=== PATIENT | female | born 1980 | race Caucasian/White ===

== ENCOUNTER 2018-11-02 20:02 | Inpatient (IN) ==
[2018-11-02] MEDS ORDERED: NS 1,000 ML IV ONE ×2 (20:35→22:44)
[2018-11-02] MEDS ORDERED: ZOFRAN IV ONE ×2 (20:35→22:44)
[2018-11-02] MEDS ORDERED: MORPHINE IV ONE ×2 (20:35→22:44)
[2018-11-02] MEDS ORDERED: TORADOL IV ONE (20:38)
[2018-11-02 21:15] LABS: HEMATOCRIT 43.1 % (37.0-47.0); HEMOGLOBIN 14.7 g/dL (12.0-16.0); IMM GRAN# 0.04 X1000 (0.0-0.04); IMM GRAN% 0.3 % (0.0-0.5); LYMPH# 0.33 X1000 (1.2-3.4); LYMPH% 2.6 % (20.5-51.1); MCHC 34.1 g/dL (33-37); MCV 99.8 FL (81-99); MONO# 1.13 X1000 (0.11-0.59); MONO% 8.8 % (1.7-9.3); MPV 10.2 FL (7.4-10.4); NEUT# 11.41 X1000 (1.4-6.5); NEUT% 88.3 % (42.2-75.2); PLT 124 X1000 (130-400); RBC 4.32 XMIL (4.2-5.4); RDW 16.4 % (11.5-14.5); WBC 12.91 X1000 (4.8-10.8)
[2018-11-02] MEDS ORDERED: REGLAN IV ONE (21:35)
[2018-11-02 22:18] LABS: ALB/GLOB RATIO 1.6; ALBUMIN 4.9 g/dL (3.5-5.0); CALCIUM 8.4 mg/dL (8.8-10.2); CREATININE 1.7 mg/dL (0.5-0.9); POTASSIUM 3.9 mmol/L (3.5-5.1); TOTAL BILIRUBIN 1.45 mg/dL (0.20-1.00)
[2018-11-02 23:27] LABS: URINE SOURCE CLEAN CATCH
[2018-11-02 23:30] LABS: BILIRUBIN URINE MODERATE (NEGATIVE); BLOOD URINE MODERATE (NEGATIVE); COLOR YELLOW; GLUCOSE URINE NEGATIVE (NEGATIVE); KETONE URINE >150 mg/dL (NEGATIVE); LEUKOCYTES URINE NEGATIVE (NEGATIVE); NITRITE URINE NEGATIVE (NEGATIVE); PH URINE 5.5; PROTEIN URINE 100 mg/dL (NEGATIVE); SP GRAVITY URINE 1.018; TURBIDITY URINE HAZY (CLEAR); UROBILINOGEN URINE 6 mg/dL (NORMAL)
[2018-11-02 23:36] LABS: UR EPITHELIAL CELLS <10 /HPF (<10); URINE BACTERIA NEGATIVE /HPF; URINE RBC <10 /HPF (<10); URINE WBC <10 /HPF (<10)
[2018-11-03 00:02] LABS: URINE CASTS GRANULAR PRESENT; URINE CRYSTALS NONE SEEN; URINE SMALL ROUND CELLS NONE SEEN; URINE YEAST NONE SEEN
--- NOTE | 2018-11-03 00:32 | PROVIDER DOCUMENTATION ---
This chart was entered by April Garcia Scribe, acting as scribe for Kenneth Bui MD. HPI-Abdominal Pain/GI Problem - General Chief Complaint: Nausea/Vomiting Stated Complaint: N, V, WEAK Time Seen by Provider: 11/02/18 20:35 Source: patient Allergies/Adverse Reactions: Patient Allergies Allergy/AdvReac Type Severity Reaction Status Date / Time No Known Allergies Allergy Verified 09/02/18 23:36 Home Medications: Home Medication List Medication Instructions Recorded Confirmed Last Taken Type Buspirone [Buspar] 15 mg PO BID 09/02/18 09/02/18 09/02/18 History Trazodone [Desyrel] 150 mg PO BID 09/02/18 09/02/18 09/02/18 History Ondansetron HCl [Zofran] 4 mg PO Q4H PRN PRN #20 tab 09/03/18 Unknown Rx Dicyclomine [Bentyl] 20 mg PO BID #20 cap 10/05/18 Unknown Rx Ondansetron [Zofran] 4 mg PO Q6H PRN PRN #20 tab 10/05/18 Unknown Rx - History of Present Illness-ABD Nature of Presenting Problems: pt is a 38 yr old female presenting with 2 day complaint of nausea and vomiting and abdominal pain. pt vomited x 3 in triage. pt denies diarrhea but does reports similar symptoms a few months ago, pt reports i get stomach viruses often. Abdominal Pain Onset Location: reports: epigastric Pain Radiation: reports: no radiation Quality of Pain: reports: cramping Severity in ED: reports: moderate Onset/Duration: reports: 2 days ago Timing: reports: still present Activities at Onset: reports: light activity Exposure to sick contacts?: No Modifying Factors: improves with: vomiting (induces abdominal pain) Associated Symptoms: reports: nausea, vomiting. denies: diarrhea, fever/chills Last BM: unsure Dark Stools Present?: reports: none noticed Rectal Bleeding: reports: none Rectal Pain: reports: none Bruising or Bleeding Gums?: No Similar Symptoms Previously?: Yes Recently seen or treated by another doctor?: No Review of Systems - Adult - REVIEW OF SYSTEMS - ADULT Constitutional: denies: chills, fever Eyes: reports: no symptoms reported Ears, Nose, Mouth & Throat: denies: ear pain, sinus problem, throat pain Cardiovascular: denies: chest pain, palpitations, syncope Respiratory: denies: cough, shortness of breath Gastrointestinal: reports: abdominal pain, nausea, vomiting. denies: diarrhea Genitourinary: denies: dysuria, frequency, urinary retention Musculoskeletal: denies: back pain, neck pain Integumentary: reports: no symptoms reported Neurological: denies: dizziness/vertigo, headache/migraines Psychiatric: reports: no symptoms reported Endocrine: reports: no symptoms reported Hematologic/Lymphatic: reports: no symptoms reported Allergic/Immunologic: reports: no symptoms reported All Other Systems: Reviewed and Negative Past History - Adult - PAST MEDICAL HISTORY-ADULT Review of Records: reports: Old Records Reviewed, Nursing Assessment Review, Medications Reviewed, Social history reviewed & non-contributory. Major Childhood Illnesses: reports: denies history Cardiovascular: reports: denies history Respiratory: reports: denies history Gastrointestinal: reports: denies history Obstetrical/Gynecological: reports: denies history Genitourinary: reports: denies history Musculoskeletal: reports: denies history Neurological: reports: denies history Psychiatric: reports: depression Endocrine/Immune: reports: denies history Other Conditions: reports: denies history - PRIOR SURGERIES/PROCEDURES Surgical/Procedure History: reports: reviewed, not pertinent - IMMUNIZATION STATUS Childhood Immunizations: See Nurse Assessment Flu Vaccine: See Nurse Assessment - FAMILY HISTORY Family History: reviewed, not pertinent - SOCIAL HISTORY Smoking: cigarettes Provider spent 3-5 mins advising pt. on dangers of tobacco.: Discussed manners to quit use, and f/u contacts for add'l counseling. Substance Use: alcohol Living Situation: family Physical Exam-General - PHYSICAL EXAM-ADULT Initial Vital Signs Reviewed: Yes - CONSTITUTIONAL General Appearance: appears well, alert, no apparent distress - EYES Eyes: PERRL/EOMI - HEAD, EARS, NOSE, MOUTH & THROAT HENMT: normocephalic/atraumatic, moist mucous membranes, normal ENT inspection - NECK Neck: non-tender, full range of motion, supple, normal inspection - RESPIRATORY Respiratory: chest non-tender, lungs clear, normal breath sounds - CARDIOVASCULAR Cardiovascular: normal peripheral pulses, regular rate, rhythm, no edema - GASTROINTESTINAL (ABDOMEN) Abdominal Exam: normal bowel sounds, non tender, soft - LYMPHATIC Lymphatic: no adenopathy - MUSCULOSKELETAL Back Exam: normal inspection, no CVA tenderness, no vertebral tenderness Extremity: normal range of motion, non-tender, normal gait, normal inspection - SKIN Integumentary: normal color, normal turgor, warm/dry - NEUROLOGIC Neurologic: grossly normal, no motor/sensory deficits - PSYCHIATRIC Psych/Mental Status: normal mood/affect Progress - PLAN OF CARE/RESULTS Progress/Plan/Lab Results: Vital Signs - 8 hr 11/02/18 20:15 Temperature 97.9 F Pulse Rate 129 H Respiratory Rate 25 H Blood Pressure 102/74 O2 Sat by Pulse Oximetry 97 Orders Category Date Time Status Saline Loc DIRECTED Care 11/02/18 20:27 Active NPO Diet 11/02/18 20:27 Active AMYLASE [CHEM] Stat Lab 11/02/18 20:55 Received CBC WITH ELECTRONIC DIFF [HEME] Stat Lab 11/02/18 20:55 Results COMPREHENSIVE METABOLIC PANEL [CHEM] Stat Lab 11/02/18 20:55 Received LIPASE [CHEM] Stat Lab 11/02/18 21:02 Ordered TEST-URINE [PREG] Stat Lab 11/02/18 20:27 Uncollected URINALYSIS W/POSS RFLX CULT [URINALYSIS] Stat Lab 11/02/18 20:27 Uncollected 0.9% Sodium Chloride Inj [Ns] 1,000 ml Med 11/02/18 20:35 Active IV 999 mls/hr Ketorolac [Toradol] Med 11/02/18 20:38 Discontinued 30 mg IV NOW ONE Morphine Med 11/02/18 20:35 Discontinued 4 mg IV NOW ONE Ondansetron [Zofran] Med 11/02/18 20:35 Discontinued 8 mg IV NOW ONE Result Diagrams: 11/02/18 20:55 11/02/18 21:38 Departure - Departure Date of Disposition Decision: 11/03/18 Time of Disposition Decision: 00:32 DIAGNOSIS: Pancreatitis Qualifiers: Chronicity: acute Pancreatitis type: unspecified pancreatitis type Acute pancreatitis complication: no infection or necrosis Qualified Code(s): K85.90 - Acute pancreatitis without necrosis or infection, unspecified Disposition: ADMITTED INPATIENT 09 Certified Medical Emergency: Emergent Condition: Stable Referrals and Follow-Ups: None,PCP [Primary Care Provider] - - Critical Care Note This patient required my direct & personal management of CC.: No Attestation - Physician/ HEATH Attestation Patient care was provided by Advanced Practice Provider:: No The physician spent face to face time with patient:: Yes Advanced Practice Provider documentation review:: Supervising physician onsite and consulted in the evaluation and care of this patient. The physician did have a face to face encounter with the patient. This chart was documented by the indicated scribe, (April Garcia Scribe) and accurately reflects the services I performed and decisions made by me, Kenneth Bui MD, as attested by the provider's signature.
[2018-11-03] MEDS ORDERED: ZOFRAN IV ONE (01:45)
[2018-11-03] MEDS ORDERED: MORPHINE IV ONE (01:45)
--- NOTE | 2018-11-03 02:36 | HISTORY AND PHYSICAL ---
PRIMARY CARE PHYSICIAN: None. CHIEF COMPLAINT: Nausea, vomiting, abdominal pain x3 days. HISTORY OF PRESENTING ILLNESS: A 38-year-old female without any significant past medical history, who presented to emergency department with 3-days history of having intractable nausea, vomiting, and abdominal pain. The patient states that she could not keep anything down, she felt weak, and subsequently she had come to the emergency department. In the ED, she was evaluated. She was given antiemetics and she had laboratories drawn that did show that she had elevated lipase. She also had imaging done, which was consistent with pancreatitis. Subsequently, she will require admission for further management. At the time of my examination, patient denied any headache, fever, chills, chest pain, shortness of breath, hemoptysis, melena, weight changes, but complained of nausea, vomiting, and abdominal pain. PAST MEDICAL HISTORY: None. PAST SURGICAL HISTORY: Left knee surgery. ALLERGIES: No known drug allergies. CURRENT MEDICATIONS: MAR includes BuSpar 50 mg p.o. b.i.d., trazodone 150 mg p.o. b.i.d. SOCIAL HISTORY: No history of smoking. History of alcohol use in the past, however, she states that she has not had any alcohol over the past year. Denies any illicit drug use. FAMILY HISTORY: No history of coronary disease. REVIEW OF SYSTEM: Fourteen-point review of systems is as in HPI, other systems negative. PHYSICAL EXAMINATION: GENERAL: Cooperative, friendly female, she is resting more comfortably now. VITAL SIGNS: Temperature 97.9 degrees, pulse 129, respiration 25, blood pressure 102/74. HEENT: Atraumatic, normocephalic. Extraocular movements intact. PERRLA. NECK: No masses. CHEST: Clear to auscultation. CARDIOVASCULAR: Regular rate and rhythm. ABDOMEN: Soft, diffuse tenderness. EXTREMITIES: No edema. NEUROLOGIC: She is awake, alert, oriented x3. GENITOURINARY: No bladder distention. SKIN: Warm. LABORATORIES AND STUDIES: WBC 12.91, hemoglobin 14.7, hematocrit 43.1, platelets 124,000. Lipase 1259. Sodium 129, potassium 3.9, chloride 77, CO2 is 12, BUN is 14, creatinine is 1.7. Glucose is 122. ASSESSMENT: A 38-year-old female without any significant past medical history, presents to emergency department with 3-days history of worsening nausea, vomiting, abdominal pain. She was evaluated in the emergency department. She had imaging and laboratories that confirmed pancreatitis, subsequently she will require admission for further management. Acute pancreatitis. PLAN: 1. We will admit patient to medical floor with telemetry. 2. Continue with supportive treatment with IV fluids, antiemetics, pain control. 3. We will check an abdominal ultrasound. 4. Put patient on DVT prophylaxis with SCDs. 5. We will continue to follow and reassess, make further recommendation based on patient's clinical course. cc: Ramu Fox MD
[2018-11-03] MEDS ORDERED: NS 1,000 ML IV SCH (02:42)
[2018-11-03] MEDS ORDERED: ZOFRAN IV PRN (02:42)
[2018-11-03] MEDS: PHENERGAN IV PRN (04:45)
[2018-11-03] MEDS: SODIUM CHLORIDE 0.9% INJ PRN (04:45)
[2018-11-03] MEDS: MORPHINE IV PRN (06:15)
--- NOTE | 2018-11-03 07:44 | Diag Imaging Result Doc PS360 ---
EXAM: CT ABD/PELVIS W/IV CONT ONLY HISTORY: colitis TECHNIQUE: CT abdomen and pelvis with intravenous contrast COMPARISON: 09/03/2018 FINDINGS: There is pronounced fatty infiltration of the liver. Mild thickening to the wall of the distal esophagus. No calcified gallstones or adjacent inflammation. Normal spleen. Questionable minimal inflammation about the tail of the pancreas. No pancreatic mass or pseudocyst. No pancreatic calcifications. Normal adrenal glands. Normal kidneys. No hydronephrosis. Normal aorta. No bowel obstruction. No inflammation about the cecum. No abscess. No ascites. The urinary bladder is moderately distended and is normal. There is a 1.9 cm left ovarian cyst. Normal uterus. Scattered pelvic phleboliths. IMPRESSION: 1.Marked fatty infiltration of the liver 2.Questionable mild pancreatitis 3.Small left ovarian cyst 4.A preliminary report was given at 12:16 AM This exam was performed using automated exposure control, adjustment of mA or kV according to patient size, and/or use of iterative reconstruction technique. Electronically signed by Héctor Thakur 11/03/2018 7:42 AM
[2018-11-03] MEDS ORDERED: D5 NS 1,000 ML IV SCH (11:30)
--- NOTE | 2018-11-03 11:39 | Diag Imaging Result Doc PS360 ---
EXAM: US ABDOMEN-COMPLETE HISTORY: abdominal pain TECHNIQUE: Abdominal ultrasound COMPARISON: 11/13/2017 FINDINGS: Normal pancreatic head and body. The tail is obscured. No abdominal aortic aneurysm. There is mild fatty infiltration of the liver. Normal right kidney. No hydronephrosis. Normal gallbladder. No stones. The common bile that measures 3 mm. Inferior vena cava is poorly seen. Normal left kidney. No hydronephrosis. Normal spleen. No ascites. IMPRESSION: Fatty infiltration of the liver, but otherwise normal exam. Electronically signed by Héctor Thakur 11/03/2018 11:37 AM
--- NOTE | 2018-11-03 12:43 | PROGRESS NOTE ---
DATE: 11/03/2018 SUBJECTIVE: This morning, Ms. Alfonso referred to be feeling a lot better. Still has some epigastric abdominal discomfort. OBJECTIVE: Vital signs: Blood pressure is 126/86, pulse 98, respirations 16, temperature is 98.0. General: Ms. Alfonso is a 38-year-old female. She is in bed. No significant distress. Mucosa is pink and moist. Anicteric and acyanotic. Neck is supple. Chest was clear to auscultation. No crepitations. No rhonchi. Cardiovascular: Regular rate and rhythm. No murmurs, no rubs, no gallops. Abdomen: There is some tenderness in the mid abdomen to the epigastrium with some mild rebound tenderness. Bowel sounds are present. Extremities: No pedal edema. Distal pulses present. SPLIT AND DRUM ROOM SUPERVISOR: The patient is awake, alert and oriented. There is no focal neurologic deficit. DIAGNOSTIC DATA: No laboratory data from today. The ones from yesterday have all been reviewed. A CT scan of the abdomen was done which shows a marked fatty infiltration of the liver. Questionable mild pancreatitis. ASSESSMENT: 1. Acute pancreatitis, etiology is presumably alcohol induced. The patient is currently n.p.o. and on IV fluids. Nausea has significantly improved, so we are going to try her on clears and see if she is able to tolerate. We are going to continue with the IV fluids and pain management. 2. History of alcohol abuse with alcohol induced hepatitis. Noted. 3. Fatty liver disease, presumably due to alcohol abuse. The patient has been counseled extensively. 4. Severe high anion gap metabolic acidosis, likely due to alcohol ketoacidosis. We are going to continue with the IV fluids. I will add some D5 to the baseline fluids. 5. Acute kidney injury, likely due to volume depletion. We are going to continue with IV fluids. 6. Metabolic alkalosis, likely due to dehydration. Noted. 7. Alcohol abuse. The patient has been counseled, and we started her on Librium with gabapentin to prevent withdrawal. PLAN: In general, Ms. Alfonso is a 38 year old who has a severe alcohol ingestion problem, presented to the emergency department because of nausea and abdominal discomfort, has been found to be in acute pancreatitis, etiology is presumably alcohol induced. We are going to continue with the IV fluids and symptomatic management. We will start her on clears and advance her diet as she tolerates it today. cc: Sai Camp MD
[2018-11-03 12:44] LABS: ACETAMINOPHEN < 1.2 ug/mL (10-30); SALICYLATES < 3.00 mg/dL (3-10)
[2018-11-03 12:51] LABS: ACETONE SERUM MODERATE (NEGATIVE)
[2018-11-03] MEDS ORDERED: LIBRIUM PO SCH (13:00)
[2018-11-03] MEDS: M.V.I.-12 10 ML, FOLIC ACID 1 MG, MAGNESIUM SULFATE 1 GM, THIAMINE 100 MG in NS 1,000 ML IV SCH (13:55)
[2018-11-03] MEDS: NEURONTIN PO SCH ×2 (13:56→19:59)
[2018-11-03] MEDS: LIBRIUM PO SCH (19:59)
[2018-11-03] MEDS: D5 NS 1,000 ML IV SCH (21:00)
[2018-11-04] MEDS: D5 NS 1,000 ML IV SCH ×3 (04:09→21:07)
[2018-11-04 07:16] LABS: INR 0.95; PROTIME 13.5 Seconds (11.0-16.0)
[2018-11-04] MEDS: MORPHINE IV PRN ×4 (07:32→21:49)
[2018-11-04 07:36] LABS: AGAP 12; ALB/GLOB RATIO 1.4; ALBUMIN 3.5 g/dL (3.5-5.0); ALKALINE PHOSPHATASE 93 U/L (32-104); BUN 3 mg/dL (8-22); CALCIUM 8.4 mg/dL (8.8-10.2); CHLORIDE 100 mmol/L (98-107); COSMO 269; CREATININE 0.5 mg/dL (0.5-0.9); ESTIMATED GFR > 60; GLUCOSE 107 mg/dL (70-104); GOT 56 U/L (10-30); GPT 39 U/L (10-36); MAGNESIUM 1.6 mg/dL (1.5-2.7); POTASSIUM 2.7 mmol/L (3.5-5.1); SODIUM 136 mmol/L (136-145); TCO2 24 mmol/L (25-35); TOTAL BILIRUBIN 1.25 mg/dL (0.20-1.00)
[2018-11-04 07:55] LABS: PHOSPHORUS 0.4 mg/dL (2.7-4.5)
[2018-11-04] MEDS: LIBRIUM PO SCH ×3 (08:50→21:07)
[2018-11-04] MEDS: NEURONTIN PO SCH ×2 (08:50→21:07)
[2018-11-04] MEDS ORDERED: MAGNESIUM SULFATE 2 GM/S.W.I. 2 GM/50 ML IVPB IV ONE (08:51)
[2018-11-04] MEDS ORDERED: POTASSIUM PHOSPHATE 60 MEQ in NS 250 ML IV ONE (10:00)
[2018-11-04 10:14] LABS: C REACTIVE PROT QUANT 63.92 mg/L (0.00-5.00)
[2018-11-04] MEDS: M.V.I.-12 10 ML, FOLIC ACID 1 MG, MAGNESIUM SULFATE 1 GM, THIAMINE 100 MG in NS 1,000 ML IV SCH (10:43)
--- NOTE | 2018-11-04 13:49 | PROGRESS NOTE ---
DATE: 11/04/2018 SUBJECTIVE: This morning Ms. Alfonso refers to be doing fairly okay denies any complaints. She was sitting up in the bed, eating her breakfast. OBJECTIVE: Vital signs: Blood pressure is 110/90, pulse of 88, respiration is 18, temperature 99.7 degrees. Patient was saturating 100% on room air. General: Ms. Alfonso is a 8-year-old female. She is in bed. She is not in any cardiopulmonary distress. HEENT: Mucosa is pink and moist. Anicteric. Acyanotic. Neck: Supple. Chest: Clear to auscultation. No crepitations. No rhonchi. Cardiovascular: Regular rate and rhythm. No murmurs, rubs or gallops. GI: Abdomen soft, minimally tender in the mid abdomen but no rebound or guarding. Bowel sounds present. No hepatosplenomegaly. Extremities: No pedal edema and distal pulses are present. PATENT ENGINEER: Patient is awake, alert, and oriented. There is not any tremors. LABORATORY DATA: INR is 0.95. Patient chemistry is reviewed. Potassium is 2.7, phosphorus is 0.4, and magnesium is 1.6. AST and ALT are all downward trend patient. C-reactive protein is 63.92 and lipase is down to 504. ASSESSMENT: 1. Acute pancreatitis secondary to alcohol abuse, improving. 2. History of alcohol abuse with alcohol induced hepatitis. Liver enzymes are downward trend. 3. Fatty liver disease secondary to alcohol abuse. 4. Severe high anion gap metabolic acidosis secondary to alcohol ketosis. This is resolved. 5. Acute kidney injury secondary to volume depletion. Creatinine has normalized with adequate fluid resuscitation. 6. Alcohol abuse. Patient has been counseled. She is currently on Librium and gabapentin. 7. Severe electrolytes abnormality including hypophosphatemia, hypokalemia and hypomagnesemia. This is presumably all related to alcohol abnormality. Will continue replacement. PLAN: In general Ms. Alfonso seems to be doing a lot better. She is tolerating her diet. We are going to advanced to GI soft diet today. Replace all her electrolytes abnormality and hopefully tomorrow we can discharge her. Ultrasound of the abdomen was unremarkable for any gallstones. cc: Sai Camp MD
[2018-11-04] MEDS: PHENERGAN IV PRN (17:40)
[2018-11-05] MEDS: PHENERGAN IV PRN ×3 (00:03→12:50)
[2018-11-05] MEDS: SODIUM CHLORIDE 0.9% INJ PRN ×2 (00:04→06:57)
[2018-11-05] MEDS: MORPHINE IV PRN ×3 (02:12→11:39)
[2018-11-05] MEDS: D5 NS 1,000 ML IV SCH ×2 (05:17→11:39)
[2018-11-05 07:41] LABS: AGAP 8; ALB/GLOB RATIO 1.6; ALBUMIN 3.4 g/dL (3.5-5.0); ALKALINE PHOSPHATASE 81 U/L (32-104); BUN 1 mg/dL (8-22); C REACTIVE PROT QUANT 28.52 mg/L (0.00-5.00); CALCIUM 8.1 mg/dL (8.8-10.2); CHLORIDE 101 mmol/L (98-107); COSMO 265; CREATININE 0.4 mg/dL (0.5-0.9); ESTIMATED GFR > 60; GLUCOSE 89 mg/dL (70-104); GOT 39 U/L (10-30); GPT 34 U/L (10-36); LIPASE 278 U/L (13-60); MAGNESIUM 1.7 mg/dL (1.5-2.7); PHOSPHORUS 2.6 mg/dL (2.7-4.5); POTASSIUM 2.8 mmol/L (3.5-5.1); SODIUM 135 mmol/L (136-145); TCO2 26 mmol/L (25-35); TOTAL BILIRUBIN 0.58 mg/dL (0.20-1.00); TOTAL PROTEIN 5.5 g/dL (6.3-8.3)
[2018-11-05 08:21] LABS: BASO# 0.05 X1000 (0.0-0.2); BASO% 1.5 % (0.0-0.8); EOS# 0.06 X1000 (0.0-0.7); EOS% 1.8 % (0.0-10.0); HEMOGLOBIN 10.3 g/dL (12.0-16.0); LYMPH# 1.65 X1000 (1.2-3.4); LYMPH% 50.3 % (20.5-51.1); MCH 34.6 PG (27-31); MCHC 34.3 g/dL (33-37); MCV 100.7 FL (81-99); MONO# 0.23 X1000 (0.11-0.59); NEUT# 1.29 X1000 (1.4-6.5); NEUT% 39.4 % (42.2-75.2); PLT 75 X1000 (130-400); RBC 2.98 XMIL (4.2-5.4); RDW 15.4 % (11.5-14.5); WBC 3.28 X1000 (4.8-10.8)
[2018-11-05] MEDS: NEURONTIN PO SCH (08:26)
[2018-11-05] MEDS: LIBRIUM PO SCH (08:27)
[2018-11-05] MEDS: M.V.I.-12 10 ML, FOLIC ACID 1 MG, MAGNESIUM SULFATE 1 GM, THIAMINE 100 MG in NS 1,000 ML IV SCH (11:38)
[2018-11-05 11:53] VITALS: BP 127/97
--- NOTE | 2018-11-05 13:54 | DISCHARGE SUMMARY ---
ADMISSION DATE: 11/03/2018 DISCHARGE DATE: 11/05/2018 DISPOSITION: Home. FOLLOW-UP: Will be patient's PCP, which she has yet to find. CONSULTATION DURING THIS ADMISSION: None. IMAGING STUDIES: 1. A CT scan of the abdomen and pelvis reveal mild fatty infiltration of the liver. 2. Mild pancreatitis. 3. Small left ovarian cyst. 4. An ultrasound of the abdomen show fatty infiltration of the liver, but otherwise normal. No stones found. ADMISSION DIAGNOSIS: Acute pancreatitis. DIAGNOSIS AT THE TIME OF DISCHARGE: 1. Acute alcohol-induced pancreatitis. 2. History of alcohol abuse with presenting alcohol induced hepatitis, resolved. 3. Fatty liver disease secondary to alcohol abuse. 4. Severe high anion gap metabolic acidosis on presentation secondary to alcoholic ketosis, resolved. 5. Acute kidney injury on presentation, secondary to volume depletion, resolved. 6. Severe electrolyte abnormality including hypophosphatemia, hypokalemia, hypomagnesemia were all replaced. 7. Pancytopenia secondary to alcohol side effects. PRESENTING COMPLAINT: Nausea and vomiting. HISTORY OF PRESENT COMPLAINT: Mr. Alfonso is a 38-year-old female who has had multiple admissions in the past because of alcohol related disorders. She came to the emergency department because of nausea and vomiting, was found to be in acute pancreatitis and was admitted for further medical care. HOSPITAL COURSE: Ms. Alfonso was admitted to the medical floor and was adequately fluid resuscitated. Pain was under control and she did improve with initial management. She was initially started NPO, but then transition to clears and was advanced to a GI soft diet. She has been tolerating her diet. She is in no more pain. She has not vomited. She feels a lot stronger. She is going to be discharged in stable condition. We have spoken extensively about alcohol cessation and we have also spoken about the need for follow-up if she needs to go to [facility] in [place]. All the discharge instructions have been discussed with her and she voiced understanding. TIME SPENT FOR DISCHARGE: 37 minutes. PHYSICAL EXAMINATION: The patient vitals and physical exam this morning has been reviewed. All unremarkable and lab works have also been reviewed. cc: Sai Camp MD
== END 2018-11-05 14:39 | disposition home or self-care (01) | DRG 439 ==
LOC: ED 20:02 → 3N 11-03 02:59 → SUATTDRO 11-03 02:59
PROVIDERS: ATTEND Internal Medicine
CPT/HCPCS: 74177; 76700; 80053; 80196; 80307; 80324; 80329; 81001; 81025; 82003; 82009; 82150; 83605; 83690; 83735; 84100; 85025; 85610; 86140; 96374; 96375; 96376; 99285; A9270; G0480; G6038; G6039; J1885; J2270; J2405; J2550; J2765; J3411; J3475; J7030; J7042; J7050; Q9967

== ENCOUNTER 2018-12-29 10:24 | Inpatient (IN) ==
--- NOTE | 2018-12-29 10:50 | PROVIDER DOCUMENTATION ---
HPI-General Adult - General Chief Complaint: SEPSIS ALERT - D Stated Complaint: VOMITING Time Seen by Provider: 12/29/18 10:48 Source: patient Allergies/Adverse Reactions: Patient Allergies Allergy/AdvReac Type Severity Reaction Status Date / Time No Known Allergies Allergy Verified 09/02/18 23:36 Home Medications: Home Medication List Medication Instructions Recorded Confirmed Last Taken Type Buspirone [Buspar] 15 mg PO BID 09/02/18 11/03/18 11/02/18 History Gabapentin [Neurontin] 100 mg PO BID #60 cap 11/05/18 Unknown Rx Phosphorus #1 [K-Phos Neutral 250 mg PO BID #60 tab 11/05/18 Unknown Rx Tablet] Trazodone HCl 150 mg PO QHS #30 tab 11/05/18 Unknown Rx Trazodone [Desyrel] 100 mg PO BID #60 tab 11/05/18 Unknown Rx - History of Present Illness -Gen Adult Nature of Presenting Problems: Pt. is 38 yof that presents with c/o abd pain with N/V. Pt. reports Hx of pancreatitis and states she can't stop vomiting. She denies any other symptoms. Location of Pain/Injury: reports: abdomen. denies: none, head, face, mouth, neck, chest, upper extremity, hand(s), back, pelvis, genitalia, lower extremity, feet, upper body, lower body, generalized, other Pain Radiation: reports: no radiation. denies: arm(s), back, buttocks, chest, epigastric, feet, groin, jaw, flank (L), legs (lower), LLQ, LUQ, neck, periumbilical, flank (R), RLQ, RUQ, shoulder(s), scapula, scrotal, sternal notch, suprapubic, legs (upper), urethral, vaginal, other Quality of Pain: reports: aching. denies: burning, sharp, throbbing, tightness Severity: reports: moderate. denies: mild, severe Onset/Duration: reports: gradual, 2 days ago Timing: reports: still present. denies: improving, constant, getting worse Context/Activities at Onset: reports: none. denies: light activity, moderate activity, vigorous activity, recent emotional stress, recent physical stress, recent trauma history, possible bad food, cold exposure, eating, out of country travel, rest, sleep, sexual activity, other Modifying Factors: improves with: nothing Associated Symptoms: reports: nausea, vomiting. denies: denies symptoms, anxiety, arm pain, back/neck pain, chest pain, constipation, cough, diaphoresis, diarrhea, dizziness, EENT symptoms, fatigue, fever/chills, genitourinary problems, headaches, heartburn, joint pain, loss of appetite, malaise, muscle aches, sinus congestion/drainage, rash, seizure, shortness of breath, sensory/motor loss, pain with inspiration, swelling/mass in abdomen, syncope, weakness, trouble walking, other Similar Symptoms Previously?: Yes Recently seen or treated by another doctor?: No Review of Systems - Adult - REVIEW OF SYSTEMS - ADULT Constitutional: reports: no symptoms reported Eyes: reports: no symptoms reported Ears, Nose, Mouth & Throat: reports: no symptoms reported Cardiovascular: reports: no symptoms reported Respiratory: reports: no symptoms reported Gastrointestinal: reports: see HPI, abdominal pain, diarrhea, nausea, vomiting. denies: constipation, difficulty swallowing, frequent heartburn Genitourinary: reports: no symptoms reported Musculoskeletal: reports: no symptoms reported Integumentary: reports: no symptoms reported Neurological: reports: no symptoms reported Psychiatric: reports: no symptoms reported Past History - Adult - PAST MEDICAL HISTORY-ADULT Review of Records: reports: Old Records Reviewed, Nursing Assessment Review, Medications Reviewed, Social history reviewed & non-contributory. Major Childhood Illnesses: reports: denies history Cardiovascular: reports: denies history Respiratory: reports: denies history Gastrointestinal: reports: denies history Obstetrical/Gynecological: reports: denies history Genitourinary: reports: denies history Musculoskeletal: reports: denies history Neurological: reports: denies history Psychiatric: reports: depression Endocrine/Immune: reports: denies history Other Conditions: reports: denies history - PRIOR SURGERIES/PROCEDURES Surgical/Procedure History: reports: reviewed, not pertinent - IMMUNIZATION STATUS Childhood Immunizations: See Nurse Assessment Flu Vaccine: See Nurse Assessment - FAMILY HISTORY Family History: reviewed, not pertinent - SOCIAL HISTORY Smoking: cigarettes, greater than 1 pack/day Provider spent 3-5 mins advising pt. on dangers of tobacco.: Discussed manners to quit use, and f/u contacts for add'l counseling. Physical Exam-General - PHYSICAL EXAM-ADULT Initial Vital Signs Reviewed: Yes - CONSTITUTIONAL General Appearance: alert, moderate distress. negative: anxious, slow to respond, obtunded, combative - EYES Eyes: PERRL/EOMI, pink conjunctivae - HEAD, EARS, NOSE, MOUTH & THROAT HENMT: normocephalic/atraumatic, moist mucous membranes - NECK Neck: non-tender, full range of motion, supple, normal inspection. negative: lymphadenopathy, trachial deviation, thyromegaly - RESPIRATORY Respiratory: lungs clear, normal breath sounds - CARDIOVASCULAR Cardiovascular: regular rate, rhythm, no edema, no JVD, tachycardia. negative: extra beats, friction rub, irregularly irregular - GASTROINTESTINAL (ABDOMEN) Abdominal Exam: normal bowel sounds, soft, tenderness. negative: distended, guarding, rigid, rebound - LYMPHATIC Lymphatic: no adenopathy. negative: axilla node tender, cervical node tenderness - MUSCULOSKELETAL Back Exam: normal inspection, no CVA tenderness, no vertebral tenderness. negative: ecchymosis, scoliosis, vertebral tenderness Extremity: normal range of motion, non-tender, normal gait, normal inspection. negative: deformity, erythema, inflammation Peripheral Pulses: radial (R): 2+, radial (L): 2+ - SKIN Integumentary: pallor. negative: cyanosis, ecchymosis, erythema, jaundice - NEUROLOGIC Neurologic: grossly normal, no motor/sensory deficits - PSYCHIATRIC Psych/Mental Status: normal mood/affect, normal thought content, normal thought process, oriented x 3. negative: anxious, paranoid, tearful Progress - PLAN OF CARE/RESULTS Progress/Plan/Lab Results: Vital Signs - 8 hr 12/29/18 10:35 Temperature 98.0 F Pulse Rate 134 H Respiratory Rate 24 Blood Pressure 128/93 O2 Sat by Pulse Oximetry 98 Orders Category Date Time Status Cardiac Monitoring DIRECTED Care 12/29/18 10:42 Active ED: Urine Bedside ORDERED Care 12/29/18 10:47 Active IV Insertion ORDERED Care 12/29/18 10:42 Active Notify MD of + Sepsis Screen NOW Care 12/29/18 10:42 Active Notify Physician As Ordered Care 12/29/18 10:42 Active CHEST-1 VIEW [RAD] Stat Exams 12/29/18 10:42 Ordered BLOOD CULTURE [BLDCUL] Stat Lab 12/29/18 10:42 Uncollected CBC WITH DIFF [HEME] Stat Lab 12/29/18 10:42 Uncollected CK PROFILE [SP CHEM] Stat Lab 12/29/18 10:42 Uncollected COMPREHENSIVE METABOLIC PANEL [CHEM] Stat Lab 12/29/18 10:42 Uncollected LACTATE, PLASMA [CHEM] Q3H Lab 12/29/18 10:45 Uncollected LACTATE, PLASMA [CHEM] Q3H Lab 12/29/18 13:45 Uncollected LACTATE, PLASMA [CHEM] Q3H Lab 12/29/18 16:45 Uncollected LIPASE [CHEM] Stat Lab 12/29/18 10:49 Uncollected PROTIME WITH INR [COAG] Stat Lab 12/29/18 10:42 Uncollected PTT [COAG] Stat Lab 12/29/18 10:42 Uncollected TROPONIN T Stat Lab 12/29/18 10:42 Uncollected URINALYSIS W/POSS RFLX CULT [URINALYSIS] Stat Lab 12/29/18 10:42 Uncollected Oxygen Device Stat Oth 12/29/18 10:42 Active Laboratory Tests 12/29/18 12/29/18 12/29/18 11:00 11:00 11:00 WBC 14.91 H RBC 4.56 Hgb 14.9 Hct 44.0 MCV 96.5 MCH 32.7 H MCHC 33.9 RDW Std Deviation 13.3 Plt Count 143 MPV 10.3 Immature Gran % (Auto) 0.3 Neut % (Auto) 89.4 H Lymph % (Auto) 3.4 L [place] % (Auto) 6.8 Eos % (Auto) 0.0 Baso % (Auto) 0.1 Immature Gran # (Auto) 0.04 Neut # (Auto) 13.34 H Lymph # (Auto) 0.51 L [place] # (Auto) 1.01 H Eos # (Auto) 0.00 Baso # (Auto) 0.01 Segmented Neutrophils 88 H Band Neutrophils 2 H Lymphocytes 4 L Monocytes 6 Large Platelets OCCASIONAL Anisocytosis 1+ Macrocytosis 1+ PT 14.0 INR 1.00 PTT (Actin FS) 27.0 Sodium 132 L Potassium 4.2 Chloride 77 L Carbon Dioxide 8 L Anion Gap 47 BUN 16 Creatinine 1.3 H Estimated GFR/1.73 m2 46 BUN/Creatinine Ratio 12 Glucose 114 H Calculated Osmolality 267 Calcium 8.6 L Total Bilirubin 1.10 H AST 132 H ALT 90 H Alkaline Phosphatase 116 H Creatine Kinase 159 Troponin T Total Protein 9.4 H Albumin 5.8 H Globulin 3.6 Albumin/Globulin Ratio 1.6 Lipase 205 H Plasma Lactate Serum , Qual Urine Source Urine Color Urine Turbidity Urine pH Ur Specific [place] Urine Protein Ur Glucose (Stick) Ur Ketones (Stick) Urine Blood Urine Nitrite Urine Bilirubin Urobilinogen Dipstick Urine Leukocytes Urine WBC (Auto) Urine RBC (Auto) U Epithel Cells (Auto) Urine Bacteria (Auto) 12/29/18 12/29/18 12/29/18 11:00 11:00 11:00 WBC RBC Hgb Hct MCV MCH MCHC RDW Std Deviation Plt Count MPV Immature Gran % (Auto) Neut % (Auto) Lymph % (Auto) [place] % (Auto) Eos % (Auto) Baso % (Auto) Immature Gran # (Auto) Neut # (Auto) Lymph # (Auto) [place] # (Auto) Eos # (Auto) Baso # (Auto) Segmented Neutrophils Band Neutrophils Lymphocytes Monocytes Large Platelets Anisocytosis Macrocytosis PT INR PTT (Actin FS) Sodium Potassium Chloride Carbon Dioxide Anion Gap BUN Creatinine Estimated GFR/1.73 m2 BUN/Creatinine Ratio Glucose Calculated Osmolality Calcium Total Bilirubin AST ALT Alkaline Phosphatase Creatine Kinase Troponin T < 0.010 Total Protein Albumin Globulin Albumin/Globulin Ratio Lipase Plasma Lactate 2.9 H Serum , Qual NEGATIVE Urine Source Urine Color Urine Turbidity Urine pH Ur Specific [place] Urine Protein Ur Glucose (Stick) Ur Ketones (Stick) Urine Blood Urine Nitrite Urine Bilirubin Urobilinogen Dipstick Urine Leukocytes Urine WBC (Auto) Urine RBC (Auto) U Epithel Cells (Auto) Urine Bacteria (Auto) 12/29/18 14:11 WBC RBC Hgb Hct MCV MCH MCHC RDW Std Deviation Plt Count MPV Immature Gran % (Auto) Neut % (Auto) Lymph % (Auto) [place] % (Auto) Eos % (Auto) Baso % (Auto) Immature Gran # (Auto) Neut # (Auto) Lymph # (Auto) [place] # (Auto) Eos # (Auto) Baso # (Auto) Segmented Neutrophils Band Neutrophils Lymphocytes Monocytes Large Platelets Anisocytosis Macrocytosis PT INR PTT (Actin FS) Sodium Potassium Chloride Carbon Dioxide Anion Gap BUN Creatinine Estimated GFR/1.73 m2 BUN/Creatinine Ratio Glucose Calculated Osmolality Calcium Total Bilirubin AST ALT Alkaline Phosphatase Creatine Kinase Troponin T Total Protein Albumin Globulin Albumin/Globulin Ratio Lipase Plasma Lactate Serum , Qual Urine Source CLEAN [place] Urine Color YELLOW Urine Turbidity HAZY Urine pH 5.5 Ur Specific [place] 1.012 Urine Protein 100 A Ur Glucose (Stick) NEGATIVE Ur Ketones (Stick) >150 Urine Blood SMALL A Urine Nitrite NEGATIVE Urine Bilirubin SMALL A Urobilinogen Dipstick 3 A Urine Leukocytes NEGATIVE Urine WBC (Auto) <10 Urine RBC (Auto) <10 U Epithel Cells (Auto) <10 Urine Bacteria (Auto) NEGATIVE Discussed results and plan of care with patient. Patient agrees with plan and verbalizes understanding. Result Diagrams: 12/29/18 11:00 12/29/18 11:00 - XRAY 1 XRAY Study: Chest ([facility] [address], [address], [place] [address] Department of Imaging Patient: HERNANDEZ ALONSO Date: 12/29/18#: [id number] : 1980ADM Status: [facility]#: [id number] Age/Sex: 38/FRoom/Bed: Loc: ED Ordering Physician: Moses Moreno DO Family Physician: None,PCP Reason for Procedure: poss sepsis Signed EXAM: CHEST-1 VIEW 12/29/2018 HISTORY: poss sepsis TECHNIQUE: AP portable upright at 1224 COMMENT: There is no evidence of acute cardiac or pulmonary disease. The inspiration is more optimal than on 11/13/2017. IMPRESSION: No evidence of acute disease. Electronically signed by Buck Ruiz 12/29/2018 12:34 PM 12/29/18 1234 Interpreting Physician: Buck Ruiz MD Dictated Date/Time: 12/29/18 1233 cc: Moses Moreno DO; None,PCP) XRAY Interpretation: See note - CT/MRI 1 CT Study: Abdomen, Pelvis ([facility] [address], [address] [address] Department of Imaging Patient: HERNANDEZ ALONSO Date: 12/29/18#: [id number] : 1980ADM Status: [facility]#: [id number] Age/Sex: 38/FRoom/Bed: Loc: ED Ordering Physician: Jessa lSoan Family Physician: None,PCP Reason for Procedure: abd pain Signed EXAM: CT ABDOMEN/PELVIS W/O CONTRAST 12/29/2018 HISTORY: abd pain TECHNIQUE: This exam was performed using automated exposure control, adjustment of mA or kV according to patient size, and/or use of iterative reconstruction technique. COMMENT: The current examination is compared with the previous study of 11/02/2018. There is no evidence of acute disease in the visualized portion of the chest. There is marked hepatic steatosis. The spleen adrenal glands and pancreas are within normal limits. There is no evidence of nephrolithiasis. There is no evidence of bowel obstruction. The aorta is not distended. The pancreas is grossly normal in appearance. The appendix is normal in appearance. There is no evidence of significant free fluid. There are no masses in the pelvis. The urinary bladder is unremarkable. There is no evidence of ureterolithiasis. IMPRESSION: Hepatic steatosis. Electronically signed by Buck Ruiz 12/29/2018 2:31 PM 12/29/18 1431 Interpreting Physician: Buck Ruiz MD Dictated Date/Time: 12/29/18 1425 cc: Jessa Sloan; None,PCP) CT Results: See note - CONSULTS/PCP/HOSPITALIST Notification #1 *Consult/PCP/Hospitalist*: Inga Camp Time Discussed: 14:50 Reason/Comments: Admission Consult Disposition: Will see in ED, Admit Departure - Departure Date of Disposition Decision: 12/29/18 Time of Disposition Decision: 14:45 DIAGNOSIS: Renal insufficiency, Fatty liver Abdominal pain Qualifiers: Abdominal location: epigastric Qualified Code(s): R10.13 - Epigastric pain Pancreatitis Qualifiers: Chronicity: chronic Pancreatitis type: unspecified pancreatitis type Qualified Code(s): K86.1 - Other chronic pancreatitis Disposition: ADMITTED INPATIENT 09 Certified Medical Emergency: Emergent Condition: Stable Referrals and Follow-Ups: None,PCP [Primary Care Provider] - - Critical Care Note This patient required my direct & personal management of CC.: No Attestation - Physician/ HEATH Attestation Patient care was provided by Advanced Practice Provider:: Yes Advanced Practice Provider:: Jessa Sloan Advanced Practice Provider documentation review:: The Mid-level provider documentation, treatment plan and medical decision making was reviewed by the physician who agrees with all treatment and medical decision making by the MLP. The physician spent face to face time with patient:: No Advanced Practice Provider documentation review:: Supervising physician onsite and consulted in the evaluation and care of this patient. The physician did not have a face to face encounter with the patient.
[2018-12-29] MEDS ORDERED: NS 1,000 ML IV ONE ×2 (11:12→16:06)
[2018-12-29] MEDS ORDERED: ZOFRAN IV ONE (11:12)
[2018-12-29] MEDS ORDERED: LEVSIN-SL SL ONE (11:13)
[2018-12-29 11:36] LABS: BASO# 0.01 X1000 (0.0-0.2); BASO% 0.1 % (0.0-0.8); HEMOGLOBIN 14.9 g/dL (12.0-16.0); IMM GRAN# 0.04 X1000 (0.0-0.04); IMM GRAN% 0.3 % (0.0-0.5); LYMPH# 0.51 X1000 (1.2-3.4); LYMPH% 3.4 % (20.5-51.1); MCH 32.7 PG (27-31); MCHC 33.9 g/dL (33-37); MCV 96.5 FL (81-99); MONO# 1.01 X1000 (0.11-0.59); MONO% 6.8 % (1.7-9.3); MPV 10.3 FL (7.4-10.4); NEUT# 13.34 X1000 (1.4-6.5); NEUT% 89.4 % (42.2-75.2); PLT 143 X1000 (130-400); RBC 4.56 XMIL (4.2-5.4); RDW 13.3 % (11.5-14.5); WBC 14.91 X1000 (4.8-10.8)
[2018-12-29 11:41] LABS: BANDS 2 % (0-1); LYMPHS 4 % (21-51); MONO 6 % (1-9); SEGS 88 % (42-75)
[2018-12-29 11:42] LABS: ANISOCYTOSIS 1+
[2018-12-29 11:43] LABS: LARGE PLATELETS OCCASIONAL
[2018-12-29 12:00] LABS: ALB/GLOB RATIO 1.6; ALBUMIN 5.8 g/dL (3.5-5.0); CALCIUM 8.6 mg/dL (8.8-10.2); CREATININE 1.3 mg/dL (0.5-0.9); POTASSIUM 4.2 mmol/L (3.5-5.1); TOTAL BILIRUBIN 1.1 mg/dL (0.20-1.00); TOTAL PROTEIN 9.4 g/dL (6.3-8.3)
--- NOTE | 2018-12-29 12:36 | Diag Imaging Result Doc PS360 ---
EXAM: CHEST-1 VIEW 12/29/2018 HISTORY: poss sepsis TECHNIQUE: AP portable upright at 1224 COMMENT: There is no evidence of acute cardiac or pulmonary disease. The inspiration is more optimal than on 11/13/2017. IMPRESSION: No evidence of acute disease. Electronically signed by Buck Ruiz 12/29/2018 12:34 PM
[2018-12-29] MEDS ORDERED: TORADOL IV ONE (13:40)
[2018-12-29] MEDS ORDERED: REGLAN IV ONE (13:50)
[2018-12-29 14:25] LABS: URINE SOURCE CLEAN CATCH
[2018-12-29 14:28] LABS: BILIRUBIN URINE SMALL (NEGATIVE); BLOOD URINE SMALL (NEGATIVE); COLOR YELLOW; GLUCOSE URINE NEGATIVE (NEGATIVE); KETONE URINE >150 mg/dL (NEGATIVE); LEUKOCYTES URINE NEGATIVE (NEGATIVE); NITRITE URINE NEGATIVE (NEGATIVE); PH URINE 5.5; PROTEIN URINE 100 mg/dL (NEGATIVE); SP GRAVITY URINE 1.012; TURBIDITY URINE HAZY (CLEAR); UR EPITHELIAL CELLS <10 /HPF (<10); URINE BACTERIA NEGATIVE /HPF; URINE RBC <10 /HPF (<10); URINE WBC <10 /HPF (<10); UROBILINOGEN URINE 3 mg/dL (NORMAL)
--- NOTE | 2018-12-29 14:34 | Diag Imaging Result Doc PS360 ---
EXAM: CT ABDOMEN/PELVIS W/O CONTRAST 12/29/2018 HISTORY: abd pain TECHNIQUE: This exam was performed using automated exposure control, adjustment of mA or kV according to patient size, and/or use of iterative reconstruction technique. COMMENT: The current examination is compared with the previous study of 11/02/2018. There is no evidence of acute disease in the visualized portion of the chest. There is marked hepatic steatosis. The spleen adrenal glands and pancreas are within normal limits. There is no evidence of nephrolithiasis. There is no evidence of bowel obstruction. The aorta is not distended. The pancreas is grossly normal in appearance. The appendix is normal in appearance. There is no evidence of significant free fluid. There are no masses in the pelvis. The urinary bladder is unremarkable. There is no evidence of ureterolithiasis. IMPRESSION: Hepatic steatosis. Electronically signed by Buck Ruiz 12/29/2018 2:31 PM
[2018-12-29 15:16] LABS: UR AMPHETAMINES QUAL NONE DETECTED (NONE DETECT); UR BARBITUATES QUAL NONE DETECTED (NONE DETECT); UR BENZODIAZEPIN QUAL NONE DETECTED (NONE DETECT); UR CANNABINOIDS QUAL NONE DETECTED (NONE DETECT); UR COCAINE QUAL NONE DETECTED (NONE DETECT); UR METHADONE QUAL NONE DETECTED (NONE DETECT); UR OPIATES QUAL NONE DETECTED (NONE DETECT); UR OXYCODONE QUAL NONE DETECTED (NONE DETECT); UR PCP QUAL NONE DETECTED (NONE DETECT)
[2018-12-29] MEDS ORDERED: PEPCID IV ONE (15:56)
[2018-12-29] MEDS ORDERED: SODIUM CHLORIDE 0.9% INJ ONE (15:56)
[2018-12-29] MEDS ORDERED: NS 1,000 ML IV SCH (16:06)
[2018-12-29] MEDS ORDERED: TYLENOL PO PRN (16:06)
[2018-12-29] MEDS ORDERED: PHENERGAN PR PRN (16:06)
[2018-12-29] MEDS: MORPHINE IV PRN ×2 (16:55→22:33)
[2018-12-29] MEDS: PHENERGAN PO PRN ×2 (16:55→22:34)
[2018-12-29] MEDS: LR 1,000 ML IV SCH (18:21)
[2018-12-29] MEDS: ZOFRAN IV PRN ×2 (18:22→22:38)
--- NOTE | 2018-12-29 18:43 | HISTORY AND PHYSICAL ---
PRIMARY CARE PROVIDER: None. CHIEF COMPLAINT: Nausea, vomiting and epigastric pain. HISTORY OF PRESENT ILLNESS: Ms Alfonso is a 38-year-old female who carries a past medical history of alcohol-induced pancreatitis, alcohol abuse, alcohol-induced hepatitis, and fatty liver. She reports to the ED with 2-1/2 days of intractable nausea and vomiting, acid reflux, and a pain in the center of her chest that is nonradiating and does not feel like it is cardiac in nature. Positive chills. Positive constipation. Initially she adamantly denies any recent alcohol use after her last discharge; however, she states that she does drink the occasional whiskey, which is her drink of choice. Workup in the ED with abdomen and pelvis CT showed hepatic steatosis, mild hyponatremia, [id number] metabolic acidosis, and transaminitis. Plasma lactate was 2, and lipase was 205. Her urinalysis was negative for any bacteria. Her serum alcohol level was 0. We will admit her to the floor and watch her closely for DTs. Will place her on a clear liquid diet and provide her with antiemetics and p.r.n. Ativan for any agitation. REVIEW OF SYSTEMS: Twelve-point review of systems completely negative except for those mentioned in HPI. PAST MEDICAL HISTORY: 1. Alcohol use and abuse. Drink of choice is whiskey. She states since her last discharge she has had an occasional whiskey. 2. Alcohol-induced hepatitis. 3. Fatty liver disease secondary to alcohol use. 4. Alcohol-induced pancreatitis that appears to be chronic now. PAST SURGICAL HISTORY: Left knee surgery. ALLERGIES: No known drug allergies. HOME MEDICATIONS: Have not been verified. SOCIAL HISTORY: The patient does drink occasional whiskey. Prior to this, she used to drink a 5th of whiskey a day. She has been to [facility] before, a year and a half ago, for rehab. No tobacco or illicit drug use. She is in the process of currently trying to get her children back and having to go to court. She does have a supportive father at the bedside. FAMILY HISTORY: Mother with alcoholism and a grandmother with type 2 diabetes. PHYSICAL EXAMINATION: VITAL SIGNS: Temperature was 98, heart rate 116, respirations 22, blood pressure 135/89. O2 is 100% on room air; however, due to shortness of breath, she was placed on nasal cannula. GENERAL: Ms. Alfonso is a 38-year-old female who has an unkept appearance, sitting up on the stretcher, really in no acute distress, mildly fidgety. HEENT: Atraumatic, normocephalic. PERRL. NECK: Supple. Trachea midline. CARDIOVASCULAR: S1, S2 appreciated. No murmurs, gallops, or rubs noted. RESPIRATORY: Lung sounds clear bilaterally. No rales, rhonchi, or wheezes. ABDOMEN: Soft, diffusely tender to the right upper quadrant and the epigastric region. Positive bowel sounds in 4 quadrants. EXTREMITIES: Negative for edema. Bilateral pedal pulses were bounding. NEUROLOGIC: Patient is awake, alert, and oriented x4. Follows commands. Moves all extremities. Answers all questions appropriately. SKIN: Warm, dry, and intact. DIAGNOSTIC DATA: Abdomen and pelvis CT shows hepatic steatosis. LABORATORY DATA: White count 14, hemoglobin and hematocrit 14 and 44, platelet count 143. Sodium 132, potassium 4.2, BUN 16, creatinine 1.3, blood glucose 114. T-bili 1.10, AST 132, ALT 90, alkaline phosphatase 116. Troponin was less than 0.010. Albumin was 5.8, plasma lactate 2.9. Urinalysis was negative. Serum alcohol level was negative. Tox screen negative. ASSESSMENT AND PLAN: 1. Intractable nausea and vomiting and abdominal pain secondary to chronic pancreatitis that is alcohol induced. We will continue with IV fluids and antiemetics and place her on a clear liquid diet. Consider Gastroenterology consult. 2. Gastroesophageal reflux disease. The patient has been complaining of feeling acid reflux coming up into her chest. We will give her IV Pepcid now and continue her on Prilosec b.i.d. 3. Acute kidney injury. We will continue with IV hydration and recheck her kidney function in the a.m. 4. Alcohol-induced hepatitis as well as hepatic steatosis secondary to alcohol use. 5. [id number] metabolic acidosis. We will continue with aggressive IV hydration. We will order another fluid bolus and will continue with IV fluids. 6. Dyspnea. The patient does not have any fluid volume overload on chest x-ray or signs of pneumonia or wheezing. We will continue her supplemental O2 for comfort for now. 7. Alcohol use and abuse. We will watch her closely for any delirium tremens, and we have provided her with Ativan p.r.n. for agitation. This could be early signs of withdrawal; however, she has a negative alcohol level. She states it has been several days since her last alcoholic drink; however, she was not forthcoming with information in the beginning. She had to be asked several times and adamantly denied in the beginning that she had been drinking any alcohol. 8. Transaminitis and elevated lactate with no clear source of infection. We will recheck her laboratory data. She denies any fever or chills. 9. Further recommendations to follow physician evaluation, laboratory and diagnostic data. Dictated by DIANA Danielle for Sai Camp MD cc: Sai Camp MD
[2018-12-29] MEDS: PRILOSEC PO SCH (22:13)
[2018-12-29] MEDS: ATIVAN IV PRN (22:14)
[2018-12-30] MEDS: LR 1,000 ML IV SCH ×4 (03:04→18:00)
[2018-12-30] MEDS: PRILOSEC PO SCH ×2 (06:00→20:53)
[2018-12-30] MEDS: MORPHINE IV PRN ×4 (06:01→23:55)
[2018-12-30] MEDS: PHENERGAN PO PRN ×4 (06:01→23:55)
[2018-12-30 08:15] LABS: AGAP 20; ALB/GLOB RATIO 1.8; ALBUMIN 4.4 g/dL (3.5-5.0); ALKALINE PHOSPHATASE 81 U/L (32-104); AMYLASE 362 U/L (20-200); BUN 15 mg/dL (8-22); CALCIUM 8.3 mg/dL (8.8-10.2); CHLORIDE 91 mmol/L (98-107); COSMO 262; CREATININE 0.9 mg/dL (0.5-0.9); ESTIMATED GFR > 60; GLUCOSE 102 mg/dL (70-104); GOT 63 U/L (10-30); GPT 51 U/L (10-36); MAGNESIUM 1.9 mg/dL (1.5-2.7); POTASSIUM 3.5 mmol/L (3.5-5.1); SODIUM 130 mmol/L (136-145); TCO2 19 mmol/L (25-35); TOTAL BILIRUBIN 0.66 mg/dL (0.20-1.00); TOTAL PROTEIN 6.9 g/dL (6.3-8.3)
[2018-12-30 08:20] LABS: LIPASE 1378 U/L (13-60)
[2018-12-30 09:33] LABS: EOS# 0.03 X1000 (0.0-0.7); EOS% 0.9 % (0.0-10.0); HEMATOCRIT 33.9 % (37.0-47.0); HEMOGLOBIN 11.8 g/dL (12.0-16.0); LYMPH# 0.88 X1000 (1.2-3.4); MCHC 34.8 g/dL (33-37); MCV 94.7 FL (81-99); MONO# 0.68 X1000 (0.11-0.59); MONO% 20.1 % (1.7-9.3); MPV 9.8 FL (7.4-10.4); NEUT# 1.79 X1000 (1.4-6.5); PLT 93 X1000 (130-400); RBC 3.58 XMIL (4.2-5.4); RDW 13.3 % (11.5-14.5); WBC 3.38 X1000 (4.8-10.8)
[2018-12-30 10:18] LABS: ANISOCYTOSIS 1+; BANDS 3 % (0-1); EOS 1 % (1-10); LYMPHS 26 % (21-51); MONO 19 % (1-9); SEGS 51 % (42-75)
[2018-12-30 10:19] LABS: LARGE PLATELETS OCCASIONAL
--- NOTE | 2018-12-30 11:37 | PROGRESS NOTE ---
DATE: 12/30/2018 SUBJECTIVE: This morning Ms. Alfonso refers to be feeling a lot better. However, she did say she had some discomfort in the abdomen and chest pain. OBJECTIVELY: Her Current Vitals: Blood pressure is 120/86, pulse of 107, respirations 18, temperature 98.1 degrees, the patient is saturating 100% on room air. On general exam, Ms. Alfonso is a 38-year-old female. She is in bed, no distress. Mucosa is pink and moist. Anicteric. Acyanotic. Neck is supple. Chest: Good air entry bilateral. There were no crepitations, no rhonchi. Cardiovascular: Regular rate and rhythm. Abdomen: Soft. Minimally tender generally, but no rebound or guarding. Extremities: No pedal edema. Central Nervous System: Patient is awake, alert, oriented. DIAGNOSTIC STUDIES: WBC is down to 3.38, hemoglobin is 11.8, platelet count is down 93. Chemistry is also reviewed. Sodium is 130, potassium is 3.5, chloride is 91, bicarbonate is up to 19, anion gap is down to 20. Lipase is 1378. AST and ALT are trending down. CT scan yesterday showed hepatic steatosis. ASSESSMENT: 1. Acute alcohol-induced pancreatitis. 2. Severe hepatic steatosis secondary to alcoholic fatty liver disease. 3. High anion gap metabolic acidosis on presentation secondary to starvation ketosis. 4. Alcohol use and abuse. 5. History of gastroesophageal reflux disease. This morning, Ms. Alfonso seems to be doing a lot better. No more having any nauseation. Kidney function has normalized. We are going to continue with the hydration. We will also going to start her on clear liquids and see if she tolerates that. We will advance it. We will do triglyceride levels to rule out any potential confounding hypertriglyceridemia. I have spoken extensively over 30 minutes with Ms. Alfonso about alcohol cessation and the fact that this is doing her a lot of harm, even in the short term, and that the long-term side effects will probably be even worse. was at the bedside at the time of the encounter, and they both voiced understanding. cc: Sai Camp MD
[2018-12-30 11:43] LABS: CHOLESTEROL 263 mg/dL (0-200); HDL 69 mg/dL (45-65); LDL 150 mg/dL; TRIGLYCERIDES 221 mg/dL (35-135); VLDL 44 mg/dL
[2018-12-30] MEDS: NEURONTIN PO SCH ×2 (12:02→20:53)
[2018-12-30] MEDS: LIBRIUM PO SCH ×2 (12:02→18:00)
[2018-12-30] MEDS: ATIVAN IV PRN (20:57)
[2018-12-31] MEDS ORDERED: MELATONIN PO ONE (00:36)
[2018-12-31] MEDS ORDERED: IMODIUM PO ONE (00:36)
[2018-12-31] MEDS: LR 1,000 ML IV SCH ×3 (04:16→19:44)
[2018-12-31] MEDS: PRILOSEC PO SCH ×2 (06:06→21:02)
[2018-12-31 06:58] LABS: BASO# 0.03 X1000 (0.0-0.2); BASO% 0.9 % (0.0-0.8); EOS# 0.05 X1000 (0.0-0.7); EOS% 1.5 % (0.0-10.0); HEMATOCRIT 32.3 % (37.0-47.0); HEMOGLOBIN 11.2 g/dL (12.0-16.0); LYMPH# 1.39 X1000 (1.2-3.4); LYMPH% 42.5 % (20.5-51.1); MCH 32.3 PG (27-31); MCHC 34.7 g/dL (33-37); MCV 93.1 FL (81-99); MONO% 12.2 % (1.7-9.3); MPV 10.3 FL (7.4-10.4); NEUT% 42.9 % (42.2-75.2); PLT 86 X1000 (130-400); RBC 3.47 XMIL (4.2-5.4); RDW 13.1 % (11.5-14.5); WBC 3.27 X1000 (4.8-10.8)
[2018-12-31 07:28] LABS: MAGNESIUM 1.7 mg/dL (1.5-2.7)
[2018-12-31 07:43] LABS: AGAP 12; ALB/GLOB RATIO 1.7; ALBUMIN 3.8 g/dL (3.5-5.0); ALKALINE PHOSPHATASE 67 U/L (32-104); BUN 3 mg/dL (8-22); C REACTIVE PROT QUANT 35.65 mg/L (0.00-5.00); CALCIUM 8.5 mg/dL (8.8-10.2); CHLORIDE 99 mmol/L (98-107); COSMO 273; CREATININE 0.4 mg/dL (0.5-0.9); ESTIMATED GFR > 60; GLUCOSE 107 mg/dL (70-104); GOT 42 U/L (10-30); GPT 38 U/L (10-36); POTASSIUM 2.8 mmol/L (3.5-5.1); SODIUM 138 mmol/L (136-145); TCO2 27 mmol/L (25-35); TOTAL BILIRUBIN 0.58 mg/dL (0.20-1.00); TOTAL PROTEIN 6.1 g/dL (6.3-8.3)
[2018-12-31 07:48] LABS: PHOSPHORUS 0.8 mg/dL (2.7-4.5)
[2018-12-31] MEDS: PHENERGAN PO PRN ×3 (07:48→19:09)
[2018-12-31] MEDS: MORPHINE IV PRN ×3 (07:48→19:09)
[2018-12-31] MEDS ORDERED: POTASSIUM PHOSPHATE 60 MEQ in NS 250 ML IV ONE (08:14)
[2018-12-31] MEDS: NEURONTIN PO SCH ×2 (09:20→21:02)
[2018-12-31] MEDS: LIBRIUM PO SCH (09:21)
[2018-12-31] MEDS ORDERED: BLISTEX MEDICATED BERRY LIP BALM TOP PRN (12:38)
--- NOTE | 2018-12-31 14:37 | PROGRESS NOTE ---
DATE: 12/31/2018 SUBJECTIVE: This morning Ms. Alfonso referred to be feeling a lot better. No nauseation. No vomiting. No abdominal pain, so we started her on a regular diet. I understand she had lunch and she is feeling just nauseating and some left-sided abdominal pain. We will withhold her discharge. OBJECTIVE: Vital Signs: Blood pressure was 118/89, pulse 92, respirations 18, and temperature 98.1 degrees. The patient was saturating 99% on room air. General: Ms. Alfonso is a 38-year-old female. She was in bed in no distress. Mucosa is pink and moist. Anicteric. Acyanotic. Neck: Supple. Chest: Clear to auscultation. No crepitations. No rhonchi. Cardiovascular: Regular rate and rhythm. No murmurs, no rubs, no gallops. Abdomen: Soft. Minimally tender in the epigastrium, but for most part was benign. No rebound or guarding. No hepatosplenomegaly. Extremities: No pedal edema. MANAGER CODING: Patient is awake, alert, and oriented. There is no focal neurological deficit. LABORATORY DATA: WBC 3.27, hemoglobin is 11.2, and platelet count of 86,000. Chemistry is also reviewed. Potassium was 2.8. Phosphorus was 0.8. ASSESSMENT: 1. Acute alcohol-induced hepatitis on background of severe hepatic steatosis. 2. High anion gap metabolic acidosis secondary to starvation ketosis, resolved. 3. Alcohol use and abuse. 4. History of gastroesophageal reflux disease. 5. Severe electrolyte abnormality (hypokalemia and hypophosphatemia). This has been replaced. Today, Ms. Alfonso was feeling a lot better, and there was a plan to have her discharged. We started her on a diet because she has tolerated her clears and full liquid diet. However, she did not seem to have tolerated well her diet as per the nursing staff. We are going to withhold the discharge, and put her back on a full liquid diet and observe her overnight until tomorrow. cc: MD BECK Zuluaga
[2018-12-31 18:05] LABS: AGAP 14; ALBUMIN 4.1 g/dL (3.5-5.0); BUN 2 mg/dL (8-22); CALCIUM 8.5 mg/dL (8.8-10.2); CHLORIDE 97 mmol/L (98-107); COSMO 274; CREATININE 0.4 mg/dL (0.5-0.9); ESTIMATED GFR > 60; GLUCOSE 136 mg/dL (70-104); PHOSPHORUS 2.1 mg/dL (2.7-4.5); POTASSIUM 2.9 mmol/L (3.5-5.1); SODIUM 138 mmol/L (136-145); TCO2 27 mmol/L (25-35)
[2018-12-31] MEDS ORDERED: KLOR-CON PO ONE (19:12)
[2018-12-31] MEDS: NEUTRA-PHOS PO SCH (21:02)
[2018-12-31] MEDS: ATIVAN IV PRN (21:02)
[2019-01-01] MEDS: LR 1,000 ML IV SCH ×2 (00:44→08:39)
[2019-01-01] MEDS: PHENERGAN PO PRN ×2 (01:28→06:55)
[2019-01-01] MEDS: MORPHINE IV PRN ×2 (01:28→06:55)
[2019-01-01 06:52] LABS: AGAP 11; ALB/GLOB RATIO 1.8; ALBUMIN 3.8 g/dL (3.5-5.0); ALKALINE PHOSPHATASE 68 U/L (32-104); BUN 1 mg/dL (8-22); CALCIUM 8.5 mg/dL (8.8-10.2); CHLORIDE 98 mmol/L (98-107); COSMO 272; CREATININE 0.3 mg/dL (0.5-0.9); ESTIMATED GFR > 60; GLUCOSE 112 mg/dL (70-104); GOT 38 U/L (10-30); GPT 36 U/L (10-36); POTASSIUM 3.4 mmol/L (3.5-5.1); SODIUM 138 mmol/L (136-145); TCO2 29 mmol/L (25-35); TOTAL BILIRUBIN 0.35 mg/dL (0.20-1.00); TOTAL PROTEIN 5.9 g/dL (6.3-8.3)
[2019-01-01 06:54] LABS: C REACTIVE PROT QUANT 19.08 mg/L (0.00-5.00)
[2019-01-01] MEDS: PRILOSEC PO SCH (06:55)
[2019-01-01 07:24] VITALS: BP 137/96
[2019-01-01] MEDS: NEURONTIN PO SCH (08:37)
[2019-01-01] MEDS: NEUTRA-PHOS PO SCH (08:38)
--- NOTE | 2019-01-01 22:43 | DISCHARGE SUMMARY ---
ADMISSION DATE: 12/29/2018 DISCHARGE DATE: 01/01/2019 DISPOSITION: Home. FOLLOW-UP: Will be with the patient's PCP, which she has been advised to get. CONSULTATION DURING THIS ADMISSION: None. IMAGING STUDIES: Are significant. A chest x-ray which was negative for any acute disease. A CT scan of the abdomen and pelvis without contrast showed hepatic steatosis. ADMISSION DIAGNOSES: 1. Intractable nausea and vomiting and abdominal pain secondary to chronic pancreatitis. 2. Gastroesophageal reflux disease. 3. Acute kidney injury. 4. Alcohol-induced hepatitis. DIAGNOSIS AT THE TIME OF DISCHARGE: 1. Acute alcohol-induced pancreatitis. 2. Acute alcohol-induced hepatitis on background of severe hepatic steatosis. 3. High anion gap metabolic acidosis on presentation secondary to starvation ketosis, resolved. 4. Alcohol alcohol use and abuse. The patient has been counseled. 5. History of gastroesophageal reflux disease. 6. Electrolyte abnormality associated with chronic alcohol abuse (hypokalemia and hypophosphatemia, all have been replaced. DISCHARGE MEDICATIONS: 1. BuSpar 50 mg p.o. b.i.d. 2. Trazodone 100 mg b.i.d. 3. K-Phos. 4. Gabapentin 100 mg b.i.d. 5. Omeprazole 40 mg b.i.d. PRESENTING COMPLAINT: Nausea, vomiting and epigastric pain. HISTORY OF PRESENTING COMPLAINT: Ms. Alfonso is a 38-year-old female who is known to have alcohol abuse issues. She came to the emergency department because of nausea and vomiting. She was found to have elevated lipase as well as elevated liver enzymes. She was admitted for further medical care. HOSPITAL COURSE: Ms. Alfonso was admitted to the medical floor. She was adequately fluid resuscitated. Her acid-base disturbances all got corrected once her hydration status improved. She was kept n.p.o. initially, but the following day she was started on some clears and she tolerated her meals. Her nausea and vomiting resolved. Abdominal pain also got better. This morning she refers to be feeling better. Her labs reflect that her C-reactive protein has been trending down. Her potassium is almost normalized and her phosphorus is also almost normalized. Ms. Alfonso feels stronger. She has been tolerating her diet and we think she can be discharged. We have spoken extensively about the long-term side effects of alcohol. I have also had conversation with her father who was at the bedside the day before yesterday and we spoke extensively about alcohol abuse and alcohol-related diseases. Ms. Alfonso, at this point, does not have any family care physician and she will be given a list of institutions and providers in the community that she will be able to follow up with. Ms. Alfonso has been given a prescription for the medications that she is going to be needing at least for now. All the discharge instructions have been discussed with her. As I said, we stressed extensively about alcohol cessation. TIME SPENT FOR DISCHARGE: 35 minutes. cc: Sai Camp MD
== END 2019-01-01 13:28 | disposition home or self-care (01) | DRG 439 ==
LOC: ED 10:24 → 3N 15:09
PROVIDERS: ATTEND Internal Medicine
CPT/HCPCS: 71010; 71045; 74176; 80053; 80061; 80069; 80101; 80301; 80307; 80320; 80324; 80345; 80346; 80353; 80358; 80361; 80365; 81001; 82009; 82055; 82150; 82550; 82948; 83605; 83690; 83735; 83992; 84100; 84484; 84703; 85025; 85610; 85730; 86140; 87040; A9270; G0431; G0434; G0479; G0480; G6040; J1885; J2060; J2270; J2405; J2765; J7030; J7050; J7120; S0028; XXXXX

== ENCOUNTER 2019-02-09 06:14 | Inpatient (IN) ==
[2019-02-09] MEDS ORDERED: PHENERGAN IV ONE (06:46)
[2019-02-09] MEDS ORDERED: NS 1,000 ML IV ONE ×4 (06:46→09:53)
[2019-02-09] MEDS ORDERED: SODIUM CHLORIDE 0.9% INJ ONE ×2 (06:46→06:54)
[2019-02-09] MEDS ORDERED: PHENERGAN IM ONE (06:49)
[2019-02-09] MEDS ORDERED: DUONEB (A & A) INH ONE (06:54)
[2019-02-09] MEDS ORDERED: PEPCID IV ONE (06:54)
--- NOTE | 2019-02-09 06:54 | PROVIDER DOCUMENTATION ---
HPI-Abdominal Pain/GI Problem - General Chief Complaint: Nausea/Vomiting Stated Complaint: n/v Time Seen by Provider: 02/09/19 06:46 Source: patient, EMS Allergies/Adverse Reactions: Patient Allergies Allergy/AdvReac Type Severity Reaction Status Date / Time No Known Allergies Allergy Verified 09/02/18 23:36 Home Medications: Home Medication List Medication Instructions Recorded Confirmed Last Taken Type Buspirone [Buspar] 15 mg PO BID 09/02/18 11/03/18 11/02/18 History Phosphorus #1 [K-Phos Neutral 250 mg PO BID #60 tab 11/05/18 Unknown Rx Tablet] Gabapentin [Neurontin] 100 mg PO BID #60 cap 01/01/19 Unknown Rx Omeprazole [Prilosec] 40 mg PO BID@0700,2100 #60 cap 01/01/19 Unknown Rx Trazodone [Desyrel] 100 mg PO BID #60 tab 01/01/19 Unknown Rx - History of Present Illness-ABD Nature of Presenting Problems: PATIENT COMPLAINS OF COUGH, ABD PAIN, N/V X 1 WEEK. FEELS LIKE "GAGGING" WHEN COUGHING OFTEN. NO FEVER. EPIGASTRIC ABD PAIN WITH MULTIPLE BOUTS CLEAR EMESIS OVERNIGHT. NO DIARHHEA. Abdominal Pain Onset Location: reports: epigastric Pain Radiation: reports: no radiation Quality of Pain: reports: aching Severity in ED: reports: mild Onset/Duration: reports: last week Activities at Onset: reports: none Modifying Factors: improves with: nothing Associated Symptoms: reports: cough Review of Systems - Adult - REVIEW OF SYSTEMS - ADULT Constitutional: reports: no symptoms reported Cardiovascular: reports: no symptoms reported Respiratory: reports: cough. denies: hemoptysis, wheezing Gastrointestinal: reports: see HPI Genitourinary: reports: no symptoms reported All Other Systems: Reviewed and Negative Past History - Adult - PAST MEDICAL HISTORY-ADULT Review of Records: reports: Nursing Assessment Review, Medications Reviewed, Social history reviewed & non-contributory. Major Childhood Illnesses: reports: denies history Cardiovascular: reports: denies history Respiratory: reports: denies history Gastrointestinal: reports: denies history Obstetrical/Gynecological: reports: denies history Genitourinary: reports: denies history Musculoskeletal: reports: denies history Neurological: reports: denies history Psychiatric: reports: depression Endocrine/Immune: reports: denies history Other Conditions: reports: denies history - PRIOR SURGERIES/PROCEDURES Surgical/Procedure History: reports: reviewed, not pertinent - IMMUNIZATION STATUS Childhood Immunizations: See Nurse Assessment Flu Vaccine: See Nurse Assessment - FAMILY HISTORY Family History: reviewed, not pertinent - SOCIAL HISTORY Substance Use: denies Physical Exam-General - PHYSICAL EXAM-ADULT Initial Vital Signs Reviewed: Yes - CONSTITUTIONAL General Appearance: alert - EYES Eyes: PERRL/EOMI - HEAD, EARS, NOSE, MOUTH & THROAT HENMT: normocephalic/atraumatic, moist mucous membranes - NECK Neck: non-tender, full range of motion, supple, normal inspection - RESPIRATORY Respiratory: lungs clear, normal breath sounds, no respiratory distress - CARDIOVASCULAR Cardiovascular: normal peripheral pulses, regular rate, rhythm, no edema - GASTROINTESTINAL (ABDOMEN) Abdominal Exam: normal bowel sounds, soft, no organomegaly, no pulsatile mass, tenderness (MILD EPIGASTRIC). negative: guarding, rebound - MUSCULOSKELETAL Back Exam: normal inspection - SKIN Integumentary: normal turgor, warm/dry - NEUROLOGIC Neurologic: no motor/sensory deficits Progress - PLAN OF CARE/RESULTS Progress/Plan/Lab Results: Vital Signs - 8 hr 02/09/19 06:19 Temperature 97.8 F Pulse Rate 130 H Respiratory Rate 20 Blood Pressure 140/100 O2 Sat by Pulse Oximetry 98 Orders Category Date Time Status CHEST-2 VIEWS [RAD] Stat Exams 02/09/19 06:50 Ordered CBC WITH ELECTRONIC DIFF [HEME] Stat Lab 02/09/19 06:48 Ordered COMPREHENSIVE METABOLIC PANEL [CHEM] Stat Lab 02/09/19 06:48 Ordered LIPASE [CHEM] Stat Lab 02/09/19 06:50 Uncollected UA NIMS W/REFLEX CULT [URINALYSIS] Stat Lab 02/09/19 06:50 Uncollected 0.9% Sodium Chloride Inj [Ns] 1,000 ml Med 02/09/19 06:46 Active IV 999 mls/hr Promethazine [Phenergan] Med 02/09/19 06:46 Discontinued 12.5 mg IV NOW ONE Promethazine [Phenergan] Med 02/09/19 06:49 Discontinued 25 mg IM NOW ONE Sodium Chloride 0.9% Med 02/09/19 06:46 Discontinued 10 ml INJ NOW ONE Result Diagrams: 02/09/19 06:41 02/09/19 06:41 - REASSESSMENT Reassessment #1 Time Reassessed: 08:46 Status: improving (PAIN IMPROVING. NORMAL MENTAL STATUS. ABLE TO SPEAK IN FULL SENTECNES) - XRAY 1 XRAY Study: Chest Impression: See EMR Report ( EXAM: CHEST-2 VIEWS 02/09/2019 HISTORY: sob TECHNIQUE: PA and lateral chest COMMENT: There is ill-defined opacity in the right lower lobe which was not the case on 12/29/2018. IMPRESSION: Right lower lobe pneumonia. Electronically signed by Buck Ruiz 02/09/2019 8:29 AM 02/09/19 0829 Interpreting Physician: Buck Ruiz MD Dictated Date/Time: 02/09/19 08 cc: Jose Salazar MD; None,PCP) - CT/MRI 1 CT Study: Abdomen, Pelvis Impression: See EMR Report (Signed EXAM: CT ABDOMEN/PELVIS W/O CONTRAST 02/09/2019 HISTORY: FLANK PAIN TECHNIQUE: This exam was performed using automated exposure control, adjustment of mA or kV according to patient size, and/or use of iterative reconstruction technique. COMMENT: The current study is compared with 12/28/2018. There are patchy opacities present in the right middle and lower lobes which were not present at the time the previous examination. Presumably this is due to pneumonia. There is profound hepatic steatosis. This was also the case previously. The gallbladder is somewhat hyperdense, again this was the case previously. There is stranding in the fat surrounding the pancreas particularly in the anterior left pararenal space. This was not the case previously. The spleen is not enlarged. The adrenal glands are not enlarged. There is no evidence of nephrolithiasis or hydronephrosis. There is no evidence of bowel obstruction. The appendix is normal in appearance. There is no free fluid. The urinary bladder is unremarkable. IMPRESSION: 1. Right middle and lower lobe pneumonia. 2. Acute pancreatitis. The lack of contrast limits assessment. 3. Severe hepatic steatosis. Electronically signed by Buck Ruiz 02/09/2019 8:27 AM 02/09/19 08 Interpreting Physician: Buck Ruiz MD Dictated Date/Time: 02/09/19 08 cc: Jose Salazar MD; None,PCP) Departure - Departure Date of Disposition Decision: 02/09/19 Time of Disposition Decision: 08:45 DIAGNOSIS: Pneumonia, Acute pancreatitis Disposition: ADMITTED INPATIENT 09 Certified Medical Emergency: Emergent Condition: Stable Referrals and Follow-Ups: None,PCP [Primary Care Provider] - - Critical Care Note This patient required my direct & personal management of CC.: No Attestation - Physician/ HEATH Attestation Patient care was provided by Advanced Practice Provider:: No The physician spent face to face time with patient:: Yes Advanced Practice Provider documentation review:: Supervising physician onsite and consulted in the evaluation and care of this patient. The physician did have a face to face encounter with the patient.
[2019-02-09 07:12] LABS: ESTIMATED GFR > 60
[2019-02-09 07:15] LABS: AGAP 43; ALB/GLOB RATIO 1.1; ALBUMIN 4.6 g/dL (3.5-5.0); ALKALINE PHOSPHATASE 303 U/L (32-104); BASO# 0.01 X1000 (0.0-0.2); BASO% 0.1 % (0.0-0.8); BUN 6 mg/dL (8-22); CALCIUM 9.2 mg/dL (8.8-10.2); CHLORIDE 84 mmol/L (98-107); COSMO 270; CREATININE 0.8 mg/dL (0.5-0.9); EOS% 0.8 % (0.0-10.0); GLUCOSE 169 mg/dL (70-104); GOT 212 U/L (10-30); GPT 96 U/L (10-36); HEMATOCRIT 43.7 % (37.0-47.0); HEMOGLOBIN 14.6 g/dL (12.0-16.0); IMM GRAN# 0.12 X1000 (0.0-0.04); IMM GRAN% 0.9 % (0.0-0.5); LYMPH# 0.39 X1000 (1.2-3.4); MCH 32.2 PG (27-31); MCHC 33.4 g/dL (33-37); MCV 96.3 FL (81-99); MONO# 1.14 X1000 (0.11-0.59); MONO% 8.7 % (1.7-9.3); NEUT# 11.36 X1000 (1.4-6.5); NEUT% 86.5 % (42.2-75.2); PLT 118 X1000 (130-400); POTASSIUM 4.3 mmol/L (3.5-5.1); RBC 4.54 XMIL (4.2-5.4); RDW 14.9 % (11.5-14.5); SODIUM 134 mmol/L (136-145); TCO2 7 mmol/L (25-35); TOTAL BILIRUBIN 1.03 mg/dL (0.20-1.00); TOTAL PROTEIN 8.9 g/dL (6.3-8.3); WBC 13.12 X1000 (4.8-10.8)
[2019-02-09] MEDS ORDERED: MORPHINE IV ONE (07:44)
[2019-02-09] MEDS ORDERED: REGLAN IV ONE (07:44)
[2019-02-09 07:49] LABS: URINE SOURCE CATH
[2019-02-09 07:55] LABS: BILIRUBIN URINE SMALL (NEGATIVE); BLOOD URINE MODERATE (NEGATIVE); COLOR YELLOW; GLUCOSE URINE NEGATIVE (NEGATIVE); KETONE URINE 150 mg/dL (NEGATIVE); LEUKOCYTES URINE NEGATIVE (NEGATIVE); NITRITE URINE NEGATIVE (NEGATIVE); PROTEIN URINE 600 mg/dL (NEGATIVE); SP GRAVITY URINE 1.017; TURBIDITY URINE HAZY (CLEAR); UROBILINOGEN URINE 2 mg/dL (NORMAL)
[2019-02-09 08:08] LABS: UR EPITHELIAL CELLS <10 /HPF (<10); URINE BACTERIA NEGATIVE /HPF; URINE RBC <10 /HPF (<10); URINE WBC <10 /HPF (<10)
[2019-02-09 08:11] LABS: UR AMPHETAMINES QUAL NONE DETECTED (NONE DETECT); UR BARBITUATES QUAL NONE DETECTED (NONE DETECT); UR BENZODIAZEPIN QUAL NONE DETECTED (NONE DETECT); UR CANNABINOIDS QUAL NONE DETECTED (NONE DETECT); UR COCAINE QUAL NONE DETECTED (NONE DETECT); UR METHADONE QUAL NONE DETECTED (NONE DETECT); UR OPIATES QUAL NONE DETECTED (NONE DETECT); UR OXYCODONE QUAL NONE DETECTED (NONE DETECT); UR PCP QUAL NONE DETECTED (NONE DETECT)
[2019-02-09 08:17] LABS: URINE CASTS WHITE CELL PRESENT; URINE CRYSTALS CA CARBONATE PRESENT
--- NOTE | 2019-02-09 08:29 | Diag Imaging Result Doc PS360 ---
EXAM: CT ABDOMEN/PELVIS W/O CONTRAST 02/09/2019 HISTORY: FLANK PAIN TECHNIQUE: This exam was performed using automated exposure control, adjustment of mA or kV according to patient size, and/or use of iterative reconstruction technique. COMMENT: The current study is compared with 12/28/2018. There are patchy opacities present in the right middle and lower lobes which were not present at the time the previous examination. Presumably this is due to pneumonia. There is profound hepatic steatosis. This was also the case previously. The gallbladder is somewhat hyperdense, again this was the case previously. There is stranding in the fat surrounding the pancreas particularly in the anterior left pararenal space. This was not the case previously. The spleen is not enlarged. The adrenal glands are not enlarged. There is no evidence of nephrolithiasis or hydronephrosis. There is no evidence of bowel obstruction. The appendix is normal in appearance. There is no free fluid. The urinary bladder is unremarkable. IMPRESSION: 1. Right middle and lower lobe pneumonia. 2. Acute pancreatitis. The lack of contrast limits assessment. 3. Severe hepatic steatosis. Electronically signed by Buck Ruiz 02/09/2019 8:27 AM
--- NOTE | 2019-02-09 08:31 | Diag Imaging Result Doc PS360 ---
EXAM: CHEST-2 VIEWS 02/09/2019 HISTORY: sob TECHNIQUE: PA and lateral chest COMMENT: There is ill-defined opacity in the right lower lobe which was not the case on 12/29/2018. IMPRESSION: Right lower lobe pneumonia. Electronically signed by Buck Ruiz 02/09/2019 8:29 AM
[2019-02-09] MEDS ORDERED: ROCEPHIN 1 GM in NS 50 ML IV ONE (08:32)
[2019-02-09] MEDS ORDERED: ZITHROMAX 500 MG/NS 500 MG/250 ML IVPB IV ONE (08:32)
[2019-02-09] MEDS ORDERED: M.V.I.-12 10 ML, FOLIC ACID 1 MG, MAGNESIUM SULFATE 1 GM, THIAMINE 100 MG in NS 1,000 ML IV ONE ×11 (09:57→10:00)
[2019-02-09] MEDS ORDERED: ROBAXIN PO PRN (09:57)
[2019-02-09] MEDS ORDERED: BENTYL PO PRN (09:57)
[2019-02-09] MEDS ORDERED: SALINE LOCK IV FLUID XX ONE (09:57)
--- NOTE | 2019-02-09 10:14 | Diag Imaging Result Doc PS360 ---
EXAM: US ABDOMEN-COMPLETE 02/09/2019 HISTORY: acute pancreatitis TECHNIQUE: Abdominal ultrasound COMMENT: The pancreatic head and body are not enlarged and there are no apparent masses. The echogenicity is somewhat inhomogeneous compared to the previous study of 11/03/2018 however. The gallbladder is clear and nontender. There is no evidence of biliary dilatation the common bile duct measuring 4 mm. The kidneys are without evidence of hydronephrosis, there is a 1.4 cm cyst in the right kidney. The spleen is not enlarged. There is antegrade flow in the portal vein. The visualized portions of the aorta and inferior vena cava are within normal limits. IMPRESSION: The possibility of pancreatitis cannot be excluded on the basis of this study. (See CT examination of this date, previously reported.) Electronically signed by Buck Ruiz 02/09/2019 10:11 AM
[2019-02-09] MEDS ORDERED: NS 1,000 ML IV SCH (10:19)
[2019-02-09] MEDS ORDERED: DUONEB (A & A) INH PRN (10:19)
[2019-02-09] MEDS ORDERED: ZOFRAN IV PRN (10:19)
[2019-02-09 10:20] LABS: INR 1.15; PROTIME 14.8 Seconds (11.0-16.0); PTT 22.6 Seconds (22.3-41.8)
[2019-02-09] MEDS: LIBRIUM PO SCH ×2 (10:50→17:31)
[2019-02-09] MEDS ORDERED: ZOSYN 3.375 GM in NS 50 ML IV SCH (11:00)
[2019-02-09] MEDS ORDERED: LOVENOX SUBQ SCH (11:00)
[2019-02-09] MEDS: PROTONIX IV SCH (11:02)
[2019-02-09] MEDS: MORPHINE IV PRN ×4 (11:32→22:58)
[2019-02-09] MEDS ORDERED: ATIVAN IV ONE (11:51)
[2019-02-09] MEDS ORDERED: VANCOMYCIN IV PER PHARMACY MISC SCH (12:00)
[2019-02-09] MEDS: MERREM 1 GM in NS 50 ML IV SCH ×2 (13:26→19:24)
[2019-02-09] MEDS ORDERED: ATIVAN IV PRN (13:37)
[2019-02-09 13:49] LABS: ALLEN TEST YES; BE -17.8 mmoll (-3.0-3.0); BLOOD TYPE ARTERIAL; HCO3-(ACT) 11.1 mmoll (20.0-26.0); METHB 1.2 % (0.0-1.5); O2(CT) 15.2 mL/dL (15.0-23.0); O2HB 97.5 % (95.0-99.0); PO2(98.6) 191 mmHg (60-100); SAMPLE BLOOD; THB 10.8 g/dL (11.5-17.4); pH(98.6) 7.28 (7.35-7.45)
[2019-02-09] MEDS ORDERED: SODIUM CHLORIDE 0.9% INJ PRN (13:50)
[2019-02-09 13:51] LABS: MODALITY CANNULA; PCO2(98.6) 14 mmHg (35-45)
[2019-02-09] MEDS ORDERED: VANCOMYCIN 2,000 MG in NS 500 ML IV ONE (14:00)
[2019-02-09] MEDS: LR 1,000 ML IV SCH ×2 (14:03→19:24)
[2019-02-09] MEDS: ROBITUSSIN PO PRN ×2 (14:34→22:59)
--- NOTE | 2019-02-09 15:19 | HISTORY AND PHYSICAL ---
CHIEF COMPLAINT: Nausea, vomiting for week. 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 She presents to the emergency room complaining of 1 week of nausea, vomiting with epigastric pain. She denies any black or bloody vomitus. No diarrhea, constipation. She has been drinking daily with her last drink just prior to coming to the emergency room. CT of the abdomen and pelvis was performed which revealed right middle and lower lobe pneumonia as well as acute pancreatitis and severe hepatic steatosis. PAST MEDICAL HISTORY: 1. Alcohol induced pancreatitis. 2. Alcohol induced hepatitis on the background of severe hepatic steatosis. 3. Gastroesophageal reflux disease. PAST SURGICAL HISTORY: Right knee arthroscopy. SOCIAL HISTORY: She does drink alcohol daily. She denies illicit drug or tobacco use. ALLERGIES: No known drug allergies. HOME MEDICATIONS: A list will be obtained by the nursing staff and once verified will review and restart as appropriate. REVIEW OF SYSTEMS: Discussed with the patient with pertinent positives stated in the HPI. She denied any syncope or dizziness, any chest pain or palpitations, any shortness of breath, fever, chills, night sweats, recent weight loss or weight gain, any diarrhea, constipation, any black or bloody vomitus or stools, hematuria, dysuria, frequency, urgency. PHYSICAL EXAMINATION: GENERAL: This is a 38-year-old female who is sitting up in the bed in no distress. HEENT: Pupils are equal, round, react to light. EOMs are intact sclerae anicteric. Head is normocephalic, atraumatic. Mucous membranes are moist. NECK: Supple. Trachea midline. CARDIOVASCULAR: Regular rate and rhythm. She is tachycardic, S1, S2 appreciated. She has no lower extremity edema. Calves are nontender bilateral. Peripheral pulses palpable x4 extremities. PULMONARY: Breath sounds are clear with no increased work of breathing noted. Chest rises and falls symmetric with respiration. GASTROINTESTINAL: Abdomen soft, nondistended. She has epigastric tenderness with bowel sounds in all 4 quadrants. : She has no CVA or suprapubic tenderness. NEUROLOGIC: Alert, oriented x3. Tremors bilateral hands noted. SKIN: Warm and dry. LABS: WBC is 13.1 with a hemoglobin of 14.6, hematocrit 43.7 and platelets of 118,000. Sodium is 134, potassium 4.3, CO2 is 7, anion gap is 43, BUN is 6, creatinine 0.8 with a glucose of 169. Total bilirubin is 1 with AST 212, ALT 96, and alkaline phosphatase 303. Lipase is 1422 with a lactate of 4.3. Urinalysis reveals moderate blood with less than 10 white blood cells, red blood cells and epithelial cells. This is a catheter specimen. Urine drug screen is none detected with blood alcohol being 126. Blood cultures are pending. CT of the abdomen and pelvis reveal right middle and lower lobe pneumonia, acute pancreatitis and severe hepatic steatosis. Abdominal ultrasound reveals possibility of pancreatitis cannot be excluded. Gallbladder is clear, without evidence of hydronephrosis. There is a 1.4 cm cyst in the right kidney. Spleen is not enlarged. There is antegrade flow in the portal vein. ASSESSMENT AND PLAN: 1. High anion gap metabolic acidosis. Causes could be multifactorial that could be alcoholic, ketoacidosis as well as starvation ketoacidosis as she states the last week she has not been eating although she has continued to drink alcohol, or sepsis. 2. Tachycardia 3. Alcoholic pancreatitis. 4. Right middle, right lower lobe pneumonia. 5. Leukocytosis secondary to #1. 6. Severe hepatic steatosis. 7. Gastroesophageal reflux disease. 8. Nausea and vomiting. 9. Deep vein thrombosis prophylaxis and gastrointestinal prophylaxis. 10. Alcohol intoxication, withdrawal. 11. History of torsade secondary to electrolyte imbalance. PLAN: The patient has been admitted to the medical floor and placed on telemetry. As she is tachycardic in the 140s with tremors, will transfer to ICU for close monitoring. NPO Duo nebs q.4 hours p.r.n., with supplemental oxygen as needed. banana bag lactate per sepsis protocol. Check magnesium now magnesium , CBC, CMP daily. Librium taper and monitor for signs of DTs. Antibiotic coverage of Zosyn. p.r.n. Bentyl, Robaxin for alcohol withdrawal, Protonix for GI prophylaxis and will use SCDs for DVT prophylaxis as we are unsure of any varices, DC Lovenox for thrombocytopenia Discussed plan with Dr Camp Further treatments pending hospital course. Dictated by DIANA Byrne for Sai Camp MD cc: DIANA Byrnesah, MD [facility]
[2019-02-09 15:31] LABS: AGAP 21; ALB/GLOB RATIO 1.1; ALBUMIN 3.4 g/dL (3.5-5.0); ALKALINE PHOSPHATASE 195 U/L (32-104); BUN 3 mg/dL (8-22); CALCIUM 7.2 mg/dL (8.8-10.2); CHLORIDE 105 mmol/L (98-107); COSMO 265; CREATININE 0.6 mg/dL (0.5-0.9); ESTIMATED GFR > 60; GLUCOSE 108 mg/dL (70-104); GOT 122 U/L (10-30); GPT 62 U/L (10-36); POTASSIUM 3.9 mmol/L (3.5-5.1); SODIUM 134 mmol/L (136-145); TCO2 8 mmol/L (25-35); TOTAL BILIRUBIN 0.67 mg/dL (0.20-1.00); TOTAL PROTEIN 6.5 g/dL (6.3-8.3)
[2019-02-09] MEDS: PHENERGAN IV PRN ×2 (15:40→19:25)
--- NOTE | 2019-02-09 17:14 | HISTORY AND PHYSICAL ---
ADDENDUM: I have seen and examined Ms. Hall today. She presented to emergency department because of nausea and vomiting. She has been found to be intoxicated on alcohol with a level of 126. She is also in acute alcohol-induced pancreatitis, p.o. intolerance with nausea and vomiting and she is showing signs of alcohol withdrawal. She has been admitted to the ICU for critical care management. I have reviewed her labs and imaging studies as well. I agree with the plan that has been outlined in the H and P. Please refer to the details of the HPI which has been dictated by the P[employer] M[employer] OPERATOR in the chart. Our working diagnosis is 1. Acute alcohol-induced pancreatitis. 2. Alcohol induced hepatitis. 3. Severe high anion gap metabolic acidosis most likely combination of lactic acidosis and starvation ketosis. 4. Clinical volume depletion. 5. Intractable nausea, vomiting secondary to underlying acute pancreatitis and hepatitis. 6. Alcohol intoxication with signs of possible withdrawal. Critical time spent is 1 hour. cc: Sai Camp MD
[2019-02-10] MEDS: PHENERGAN IV PRN ×2 (01:16→05:32)
[2019-02-10] MEDS: LIBRIUM PO SCH ×3 (01:16→18:36)
[2019-02-10] MEDS: MORPHINE IV PRN ×5 (01:17→22:39)
[2019-02-10] MEDS: MERREM 1 GM in NS 50 ML IV SCH ×3 (03:19→19:48)
[2019-02-10] MEDS: LR 1,000 ML IV SCH ×4 (03:19→22:10)
[2019-02-10] MEDS: ROBITUSSIN PO PRN ×3 (03:20→22:42)
[2019-02-10] MEDS: VANCOMYCIN 1,650 MG in NS 250 ML IV SCH (08:10)
[2019-02-10 08:53] LABS: BASO# 0.02 X1000 (0.0-0.2); BASO% 0.3 % (0.0-0.8); EOS# 0.01 X1000 (0.0-0.7); EOS% 0.1 % (0.0-10.0); HEMATOCRIT 38.9 % (37.0-47.0); HEMOGLOBIN 13.2 g/dL (12.0-16.0); IMM GRAN# 0.02 X1000 (0.0-0.04); IMM GRAN% 0.3 % (0.0-0.5); LYMPH# 1.23 X1000 (1.2-3.4); LYMPH% 18.1 % (20.5-51.1); MCH 32.9 PG (27-31); MCHC 33.9 g/dL (33-37); MONO% 13.2 % (1.7-9.3); MPV 9.3 FL (7.4-10.4); NEUT# 4.62 X1000 (1.4-6.5); PLT 74 X1000 (130-400); RBC 4.01 XMIL (4.2-5.4); RDW 14.9 % (11.5-14.5)
[2019-02-10] MEDS ORDERED: ZITHROMAX PO SCH (09:00)
[2019-02-10 09:10] LABS: AGAP 20; ALB/GLOB RATIO 0.9; ALBUMIN 3.2 g/dL (3.5-5.0); ALKALINE PHOSPHATASE 199 U/L (32-104); BUN 2 mg/dL (8-22); CALCIUM 8.6 mg/dL (8.8-10.2); CHLORIDE 96 mmol/L (98-107); COSMO 263; CREATININE 0.4 mg/dL (0.5-0.9); ESTIMATED GFR > 60; GLUCOSE 78 mg/dL (70-104); GOT 90 U/L (10-30); GPT 54 U/L (10-36); LIPASE 612 U/L (13-60); MAGNESIUM 1.3 mg/dL (1.5-2.7); POTASSIUM 2.9 mmol/L (3.5-5.1); SODIUM 134 mmol/L (136-145); TCO2 18 mmol/L (25-35); TOTAL PROTEIN 6.6 g/dL (6.3-8.3)
--- NOTE | 2019-02-10 09:27 | PROGRESS NOTE ---
DATE: 02/10/2019 SUBJECTIVE: This morning, Ms. Alfonso refers to be doing a lot better. Still has some cough and back pain, especially with the cough. She denies any nausea or vomiting. OBJECTIVE: Vital signs: Blood pressure is 126/91, pulse of 108, respiration 22, temperature 99.7 degrees. The patient is saturating 96% on room air. General: Ms. Alfonso is a 38-year-old female. She is in bed in no distress. Mucosa is pink and moist. Anicteric. Acyanotic. Neck: Supple. Chest: Air entry is bilaterally reduced and there are diffuse crackles, especially to the left posterior to the right posterior lung field with some wheezing. Cardiovascular: Regular rate and rhythm. Abdomen: Soft. Minimally tender globally, but no rebound, no guarding. Extremities: No pedal edema. Central nervous system: Patient is awake, alert, and oriented. LABORATORY DATA: The CBC has been reviewed. WBC has normalized. Platelet count has dropped to about 74. Chemistry is still pending. So far blood cultures are still pending. ASSESSMENT: 1. Acute alcohol-induced pancreatitis. 2. Acute alcohol-induced hepatitis. 3. High anion gap metabolic acidosis secondary to lactic acid and starvation ketosis. We are still pending a chemistry to see but clinically the patient looks a whole lot better. 4. Clinical volume depletion, improved. 5. Intractable nausea and vomiting secondary to underlying pancreatitis, resolved. 6. Alcohol intoxications with signs of possible withdrawal, improved. 7. History of alcohol abuse. 8. Chronic pain syndrome, noted. 9. Right Middle and lower lobe pneumonia: continue with antibiotics. PLAN: In general, I think Ms. Alfonso is doing a whole lot better clinically. We still waiting on the chemistry. Her serum lactate has normalized. If the chemistry is looking a lot better than yesterday, I think we will be able to move her to the regular medical floor. We are going to start her on clears and advance it as she tolerates it. cc: Sai Camp MD Addendum: Am told by patient nurse that she is getting very agitating and delirious. Likely actively withdrawing from alcohol. Will keep in ICU for another 24 hours. MTDD
[2019-02-10] MEDS: M.V.I.-12 10 ML, FOLIC ACID 1 MG, MAGNESIUM SULFATE 1 GM, THIAMINE 100 MG in NS 1,000 ML IV SCH (09:58)
[2019-02-10] MEDS: POTASSIUM CHLORIDE 20 MEQ/SWI 20 MEQ/100 ML IVPB IV SCH ×2 (09:58→13:00)
[2019-02-10] MEDS: PROTONIX IV SCH (09:59)
[2019-02-10] MEDS ORDERED: ROCEPHIN 1 GM in NS 50 ML IV SCH (10:00)
[2019-02-10 10:12] LABS: PHOSPHORUS 0.3 mg/dL (2.7-4.5)
[2019-02-10] MEDS ORDERED: POTASSIUM PHOSPHATE 60 MEQ in NS 250 ML IV ONE (10:59)
[2019-02-10] MEDS ORDERED: MAGNESIUM SULFATE 2 GM/S.W.I. 2 GM/50 ML IVPB IV ONE (11:38)
[2019-02-10] MEDS: ATIVAN IV PRN ×2 (11:55→22:39)
[2019-02-10] MEDS: BUSPAR PO SCH (20:26)
[2019-02-10] MEDS: NEURONTIN PO SCH (20:26)
[2019-02-10] MEDS: DESYREL PO SCH (20:26)
[2019-02-11] MEDS: LIBRIUM PO SCH (02:06)
[2019-02-11] MEDS: ATIVAN IV PRN ×2 (02:06→23:53)
[2019-02-11] MEDS: VANCOMYCIN 1,650 MG in NS 250 ML IV SCH ×2 (02:06→20:50)
[2019-02-11] MEDS: MORPHINE IV PRN ×5 (02:07→20:50)
[2019-02-11] MEDS: LR 1,000 ML IV SCH ×6 (02:07→17:34)
[2019-02-11] MEDS: MERREM 1 GM in NS 50 ML IV SCH ×3 (04:37→20:50)
[2019-02-11 06:22] LABS: BASO# 0.03 X1000 (0.0-0.2); BASO% 0.5 % (0.0-0.8); EOS# 0.03 X1000 (0.0-0.7); EOS% 0.5 % (0.0-10.0); HEMATOCRIT 38.8 % (37.0-47.0); HEMOGLOBIN 13.8 g/dL (12.0-16.0); IMM GRAN# 0.02 X1000 (0.0-0.04); IMM GRAN% 0.3 % (0.0-0.5); LYMPH% 22.2 % (20.5-51.1); MCH 32.9 PG (27-31); MCHC 35.6 g/dL (33-37); MCV 92.4 FL (81-99); MONO# 0.73 X1000 (0.11-0.59); MONO% 11.6 % (1.7-9.3); MPV 10.2 FL (7.4-10.4); NEUT# 4.11 X1000 (1.4-6.5); NEUT% 64.9 % (42.2-75.2); PLT 86 X1000 (130-400); RDW 14.6 % (11.5-14.5); WBC 6.32 X1000 (4.8-10.8)
[2019-02-11 06:33] LABS: PHOSPHORUS 0.4 mg/dL (2.7-4.5)
[2019-02-11 06:34] LABS: AGAP 13; ALB/GLOB RATIO 0.9; ALBUMIN 3.1 g/dL (3.5-5.0); ALKALINE PHOSPHATASE 198 U/L (32-104); BUN 1 mg/dL (8-22); CALCIUM 8.4 mg/dL (8.8-10.2); CHLORIDE 95 mmol/L (98-107); COSMO 269; CREATININE 0.4 mg/dL (0.5-0.9); ESTIMATED GFR > 60; GLUCOSE 124 mg/dL (70-104); GOT 76 U/L (10-30); GPT 50 U/L (10-36); LIPASE 560 U/L (13-60); MAGNESIUM 1.4 mg/dL (1.5-2.7); POTASSIUM 2.7 mmol/L (3.5-5.1); SODIUM 136 mmol/L (136-145); TCO2 28 mmol/L (25-35); TOTAL BILIRUBIN 0.71 mg/dL (0.20-1.00); TOTAL PROTEIN 6.6 g/dL (6.3-8.3)
[2019-02-11] MEDS ORDERED: MAGNESIUM SULFATE 4 GM/S.W.I. 4 GM/100 ML IVPB IV ONE (08:25)
[2019-02-11] MEDS ORDERED: POTASSIUM PHOSPHATE 60 MEQ in NS 250 ML IV ONE (09:00)
[2019-02-11] MEDS: SODIUM CHLORIDE 0.9% INJ SCH (09:11)
[2019-02-11] MEDS: PROTONIX IV SCH (09:11)
[2019-02-11] MEDS: NEUTRA-PHOS PO SCH ×4 (09:19→20:49)
[2019-02-11] MEDS: BUSPAR PO SCH ×2 (09:19→20:49)
[2019-02-11] MEDS: DESYREL PO SCH ×2 (09:19→20:50)
[2019-02-11] MEDS: NEURONTIN PO SCH ×2 (09:19→20:50)
[2019-02-11 10:49] LABS: INR 1.13; PROTIME 14.7 Seconds (11.0-16.0)
[2019-02-11] MEDS ORDERED: NS 250 ML ONE (10:55)
--- NOTE | 2019-02-11 12:34 | PROGRESS NOTE ---
DATE: 02/11/2019 SUBJECTIVE: This morning Ms. Alfonso refers to be doing a little better. Still complains of some generalized pains, especially to her back. She has been able to tolerate her diet. No vomiting. OBJECTIVE: Vital Signs: Blood pressure 141/91, pulse of 118, respirations 22, and temperature 99.4 degrees. General: On general exam, Ms. Aflonso is a 38-year-old female. She is in bed. She is not in any distress. Mucosa is pink and moist. Anicteric. Acyanotic. Neck: Supple. No JVD. Respiratory: Good air entry bilaterally. Few crackles posteriorly. No wheezing. Cardiovascular: Regular rate and rhythm. Slightly tachycardic, but no murmurs. Abdomen: Minimally tender globally, but no guarding, no rebound. There is a midline ventral hernia defect palpated. 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 Follows basic commands. LABORATORY DATA: CBC is reviewed, and is completely normal. Platelet count is up to 86 from 74 yesterday. Coagulation is normal. Chemistry shows a potassium is 2.7. Phosphorus is down to 0.4. Magnesium is 1.4. AST and ALT are all trending down. Lipase is down to 460. ASSESSMENT: 1. Acute alcohol-induced pancreatitis. The patient is symptomatically improving. We will continue with pain management and hydration. She is tolerating some enteral feeding so we will continue with GI soft. 2. Alcohol-induced hepatitis. Liver enzymes are trending down. 3. High anion gap metabolic acidosis secondary to lactic acid and starvation ketosis. This has normalized. 4. Clinical volume depletion improved. 5. Intractable nausea and vomiting secondary to underlying pancreatitis, resolved. 6. Alcohol intoxication on presentation with signs of withdrawal. Patient is currently on withdrawal protocol. 7. Alcohol use and abuse. Patient has been counseled. 8. Chronic pain syndrome noted. 9. Right middle lobe pneumonia, questionable for aspiration. Patient is on antimicrobial therapy. 10. Severe electrolyte abnormality (hypophosphatemia, hypomagnesemia and hypokalemia), pattern concerning for Refeeding Syndrome We will continue replacement. PLAN: In general, Ms. Alfonso is a 38-year-old who is admitted in the ICU for the past 2 days and presented mainly because of nausea and vomiting. She has been found to have alcohol- induced pancreatitis and hepatitis. She is a strong alcohol abuser. She had an alcohol level of 126 on the serum on admission. She was still having signs of possible withdrawal. She seems to be doing a lot better. She does have severe electrolyte abnormality associated with chronic alcohol use including severe hypophosphatemia and hypomagnesemia as well as hypokalemia. All of these are being replaced. We will keep the patient in the ICU for another day. We will repeat all of these electrolytes later on today, and continue the replacement. cc: Sai Camp MD MTDD
[2019-02-11] MEDS: M.V.I.-12 10 ML, FOLIC ACID 1 MG, MAGNESIUM SULFATE 1 GM, THIAMINE 100 MG in NS 1,000 ML IV SCH (12:42)
[2019-02-11 17:06] LABS: AGAP 10; ALBUMIN 2.7 g/dL (3.5-5.0); BUN 1 mg/dL (8-22); CALCIUM 7.5 mg/dL (8.8-10.2); CHLORIDE 96 mmol/L (98-107); COSMO 268; CREATININE 0.4 mg/dL (0.5-0.9); ESTIMATED GFR > 60; GLUCOSE 131 mg/dL (70-104); PHOSPHORUS 2.2 mg/dL (2.7-4.5); POTASSIUM 2.8 mmol/L (3.5-5.1); SODIUM 135 mmol/L (136-145); TCO2 29 mmol/L (25-35)
[2019-02-12] MEDS: MORPHINE IV PRN ×5 (02:55→20:11)
[2019-02-12] MEDS: ATIVAN IV PRN ×2 (04:08→11:35)
[2019-02-12] MEDS: MERREM 1 GM in NS 50 ML IV SCH ×3 (04:09→20:24)
[2019-02-12 06:20] LABS: BASO# 0.02 X1000 (0.0-0.2); BASO% 0.5 % (0.0-0.8); EOS# 0.03 X1000 (0.0-0.7); EOS% 0.8 % (0.0-10.0); HEMATOCRIT 31.3 % (37.0-47.0); IMM GRAN# 0.02 X1000 (0.0-0.04); IMM GRAN% 0.5 % (0.0-0.5); LYMPH# 1.07 X1000 (1.2-3.4); LYMPH% 26.8 % (20.5-51.1); MCH 33.3 PG (27-31); MCHC 35.1 g/dL (33-37); MCV 94.8 FL (81-99); MONO# 0.54 X1000 (0.11-0.59); MONO% 13.5 % (1.7-9.3); MPV 10.3 FL (7.4-10.4); NEUT# 2.32 X1000 (1.4-6.5); NEUT% 57.9 % (42.2-75.2); PLT 104 X1000 (130-400); RDW 14.8 % (11.5-14.5)
[2019-02-12 06:30] LABS: AGAP 13; ALBUMIN 2.9 g/dL (3.5-5.0); ALKALINE PHOSPHATASE 156 U/L (32-104); BUN 1 mg/dL (8-22); CALCIUM 7.8 mg/dL (8.8-10.2); CHLORIDE 97 mmol/L (98-107); COSMO 276; CREATININE 0.3 mg/dL (0.5-0.9); ESTIMATED GFR > 60; GLUCOSE 118 mg/dL (70-104); GOT 62 U/L (10-30); GPT 43 U/L (10-36); LIPASE 686 U/L (13-60); MAGNESIUM 1.7 mg/dL (1.5-2.7); POTASSIUM 2.7 mmol/L (3.5-5.1); SODIUM 140 mmol/L (136-145); TCO2 30 mmol/L (25-35); TOTAL BILIRUBIN 0.39 mg/dL (0.20-1.00); TOTAL PROTEIN 5.7 g/dL (6.3-8.3)
[2019-02-12] MEDS: M.V.I.-12 10 ML, FOLIC ACID 1 MG, MAGNESIUM SULFATE 1 GM, THIAMINE 100 MG in NS 1,000 ML IV SCH ×2 (07:53→08:03)
[2019-02-12] MEDS: BUSPAR PO SCH ×2 (08:01→20:12)
[2019-02-12] MEDS: NEURONTIN PO SCH ×2 (08:01→20:12)
[2019-02-12] MEDS: DESYREL PO SCH ×2 (08:01→20:12)
[2019-02-12] MEDS: LIBRIUM PO SCH ×2 (08:01→15:57)
[2019-02-12] MEDS: NEUTRA-PHOS PO SCH ×4 (08:02→20:13)
[2019-02-12] MEDS: LR 1,000 ML IV SCH (08:02)
[2019-02-12] MEDS: PROTONIX IV SCH (08:03)
[2019-02-12] MEDS: SODIUM CHLORIDE 0.9% INJ SCH (08:03)
[2019-02-12] MEDS ORDERED: POTASSIUM CHLORIDE 40 MEQ/SWI 40 MEQ/100 ML IVPB IV ONE (10:40)
--- NOTE | 2019-02-12 12:58 | Diag Imaging Result Doc PS360 ---
EXAM: CHEST-PORTABLE 02/12/2019 HISTORY: hypoxia TECHNIQUE: AP portable at 1250 COMMENT: There is opacity and volume loss in the right middle lobe and lower lobe. This is worse than on 02/09/2019. IMPRESSION: Right middle and lower lobe pneumonia. Advise follow-up until clear. Electronically signed by Buck Ruiz 02/12/2019 12:56 PM
[2019-02-12] MEDS: POTASSIUM CHLORIDE 40 MEQ in LR 1,000 ML IV SCH (14:28)
--- NOTE | 2019-02-12 14:37 | PROGRESS NOTE ---
DATE: 02/12/2019 SUBJECTIVE: The patient has no major complaints. She is very weak, very tired. I do not really think she has gotten out of bed very much. OBJECTIVE: Her blood pressure is 113/91, heart rate of 93, respiratory rate of 29, temperature 98.8 degrees, 93% on room air. Cardiovascular: Regular rate and rhythm. Pulmonary: Bilateral breath sounds diminished at the bases. GI: Soft, nontender, nondistended. Bowel sounds were positive. Laboratory Data: White count is 4, hemoglobin and hematocrit 11 and 31, platelets 104,000. Potassium is 2.7. AST and ALT are 62 and 43, alkaline phosphatase of 156, lipase of 686. PROBLEM LIST: 1. Acute alcohol-induced pancreatitis. The patient is symptomatically improving. Lipase is still elevated. She is on a oral diet. 2. Alcohol-induced hepatitis. Liver enzymes are slowly trending downwards. 3. Alcohol withdrawal syndrome. She is on Librium protocol. 4. Right middle lobe pneumonia, aspiration, and currently on Merrem and vancomycin. We need to work on maybe a little bit of pulmonary toilet because her chest x-ray looks worse, but I think some of that is because she is bedbound. 5. Disposition. I think she is probably stable for stepdown. We will see how she does. 6. Hypokalemia. We will need to supplement and follow. We relate it to chronic malnutrition from her chronic issues. cc: Florencio Chavez MD
[2019-02-12] MEDS: DUONEB (A & A) INH SCH ×2 (15:18→23:00)
[2019-02-12] MEDS: VANCOMYCIN 1,500 MG in NS 250 ML IV SCH (15:55)
[2019-02-12] MEDS: TUSSIONEX LIQUID PO PRN (20:22)
[2019-02-13] MEDS: MORPHINE IV PRN ×6 (00:09→20:42)
[2019-02-13] MEDS: LIBRIUM PO SCH ×2 (00:17→08:23)
[2019-02-13] MEDS: DUONEB (A & A) INH SCH ×4 (04:14→21:00)
[2019-02-13] MEDS: MERREM 1 GM in NS 50 ML IV SCH ×3 (04:25→21:02)
[2019-02-13] MEDS: VANCOMYCIN 1,500 MG in NS 250 ML IV SCH ×2 (04:25→15:31)
[2019-02-13] MEDS: POTASSIUM CHLORIDE 40 MEQ in LR 1,000 ML IV SCH (04:40)
[2019-02-13 06:46] LABS: BASO# 0.04 X1000 (0.0-0.2); EOS# 0.07 X1000 (0.0-0.7); EOS% 1.7 % (0.0-10.0); HEMATOCRIT 30.7 % (37.0-47.0); HEMOGLOBIN 10.4 g/dL (12.0-16.0); LYMPH# 1.42 X1000 (1.2-3.4); MCH 32.5 PG (27-31); MCHC 33.9 g/dL (33-37); MCV 95.9 FL (81-99); MONO# 0.76 X1000 (0.11-0.59); MONO% 18.7 % (1.7-9.3); NEUT# 1.77 X1000 (1.4-6.5); NEUT% 43.6 % (42.2-75.2); PLT 145 X1000 (130-400); WBC 4.06 X1000 (4.8-10.8)
[2019-02-13 06:48] LABS: AGAP 11; BUN 1 mg/dL (8-22); CHLORIDE 98 mmol/L (98-107); COSMO 274; CREATININE 0.2 mg/dL (0.5-0.9); ESTIMATED GFR > 60; GLUCOSE 114 mg/dL (70-104); POTASSIUM 2.6 mmol/L (3.5-5.1); SODIUM 139 mmol/L (136-145); TCO2 30 mmol/L (25-35)
[2019-02-13] MEDS: TUSSIONEX LIQUID PO PRN (08:20)
[2019-02-13] MEDS: NEURONTIN PO SCH ×2 (08:21→20:42)
[2019-02-13] MEDS: PROTONIX PO SCH (08:21)
[2019-02-13] MEDS: BUSPAR PO SCH ×2 (08:22→20:42)
[2019-02-13] MEDS: NEUTRA-PHOS PO SCH ×4 (08:22→20:42)
[2019-02-13] MEDS ORDERED: M.V.I.-12 10 ML, FOLIC ACID 1 MG, MAGNESIUM SULFATE 1 GM, THIAMINE 100 MG in NS 1,000 ML IV SCH (09:00)
[2019-02-13] MEDS ORDERED: POTASSIUM CHLORIDE 40 MEQ/SWI 40 MEQ/100 ML IVPB IV ONE (09:57)
[2019-02-13] MEDS: KLOR-CON PO SCH ×2 (10:58→20:42)
[2019-02-13] MEDS: ATIVAN IV PRN ×3 (12:14→21:02)
[2019-02-13] MEDS: DESYREL PO SCH (20:42)
[2019-02-14] MEDS: TUSSIONEX LIQUID PO PRN ×2 (01:42→09:39)
[2019-02-14] MEDS: ATIVAN IV PRN ×5 (01:45→22:33)
[2019-02-14] MEDS: MORPHINE IV PRN ×5 (01:45→21:44)
[2019-02-14] MEDS: DUONEB (A & A) INH SCH ×4 (03:32→22:06)
[2019-02-14] MEDS: MERREM 1 GM in NS 50 ML IV SCH ×3 (04:50→21:09)
[2019-02-14] MEDS: VANCOMYCIN 1,500 MG in NS 250 ML IV SCH (04:50)
[2019-02-14] MEDS: BUSPAR PO SCH (09:47)
[2019-02-14] MEDS: KLOR-CON PO SCH ×2 (09:47→22:32)
[2019-02-14] MEDS: PROTONIX PO SCH (09:47)
[2019-02-14] MEDS: NEURONTIN PO SCH ×2 (09:48→22:33)
[2019-02-14] MEDS: LASIX IV SCH (09:48)
[2019-02-14] MEDS: NEUTRA-PHOS PO SCH ×4 (09:49→22:32)
[2019-02-14 11:58] LABS: AGAP 12; BUN 2 mg/dL (8-22); CALCIUM 9.5 mg/dL (8.8-10.2); CHLORIDE 96 mmol/L (98-107); COSMO 274; CREATININE 0.4 mg/dL (0.5-0.9); ESTIMATED GFR > 60; GLUCOSE 128 mg/dL (70-104); LIPASE 407 U/L (13-60); POTASSIUM 3.7 mmol/L (3.5-5.1); SODIUM 138 mmol/L (136-145); TCO2 30 mmol/L (25-35)
[2019-02-14] MEDS ORDERED: NS 500 ML ONE (17:14)
[2019-02-14] MEDS: VANCOMYCIN 1,750 MG in NS 250 ML IV SCH (18:53)
[2019-02-15] MEDS: DESYREL PO SCH ×2 (00:15→20:30)
[2019-02-15] MEDS: BUSPAR PO SCH ×3 (00:15→20:30)
[2019-02-15] MEDS: DUONEB (A & A) INH SCH ×4 (03:36→21:18)
[2019-02-15] MEDS: MERREM 1 GM in NS 50 ML IV SCH ×3 (04:21→20:29)
[2019-02-15] MEDS: MORPHINE IV PRN ×4 (04:21→20:30)
[2019-02-15] MEDS: VANCOMYCIN 1,750 MG in NS 250 ML IV SCH (05:47)
[2019-02-15] MEDS: ATIVAN IV PRN ×2 (05:47→15:35)
[2019-02-15] MEDS: TUSSIONEX LIQUID PO PRN ×2 (08:50→22:41)
[2019-02-15] MEDS: COLACE PO SCH (08:53)
[2019-02-15] MEDS: NEURONTIN PO SCH ×2 (08:53→20:29)
[2019-02-15] MEDS: LASIX IV SCH (08:54)
[2019-02-15] MEDS: PROTONIX PO SCH (08:54)
[2019-02-15] MEDS: NEUTRA-PHOS PO SCH ×4 (08:54→20:30)
[2019-02-15] MEDS: KLOR-CON PO SCH (08:54)
[2019-02-15] MEDS ORDERED: RELISTOR SUBQ ONE (10:14)
[2019-02-15] MEDS: LACTULOSE PO SCH ×2 (11:06→20:29)
[2019-02-15 11:34] LABS: AGAP 9; BUN 4 mg/dL (8-22); CALCIUM 9.7 mg/dL (8.8-10.2); CHLORIDE 98 mmol/L (98-107); COSMO 270; CREATININE 0.5 mg/dL (0.5-0.9); ESTIMATED GFR > 60; GLUCOSE 124 mg/dL (70-104); POTASSIUM 4.3 mmol/L (3.5-5.1); SODIUM 136 mmol/L (136-145); TCO2 29 mmol/L (25-35); TOTAL BILIRUBIN 0.27 mg/dL (0.20-1.00); TOTAL PROTEIN 6.4 g/dL (6.3-8.3)
[2019-02-15 11:35] LABS: ALB/GLOB RATIO 1.1; ALBUMIN 3.3 g/dL (3.5-5.0); ALKALINE PHOSPHATASE 127 U/L (32-104); GOT 39 U/L (10-30); GPT 31 U/L (10-36)
--- NOTE | 2019-02-15 18:52 | PROGRESS NOTE ---
DATE: 02/15/2019 SUBJECTIVE: The patient has no major complaints. OBJECTIVE: Blood pressure is 94/57, heart rate 114, respiratory rate 20, temperature 98.6 degrees, 94% on 2 L.Cardiovascular: Regular rate and rhythm. Pulmonary: Bilateral breath sounds clear to auscultation. GI: Was soft, mild tenderness, nondistended. Bowel sounds are positive. LABORATORY DATA: Her comp was better, I do not have a lipase today but she looked a little bit better. PROBLEM LIST: 1. Acute on chronic pancreatitis or at least recurrent pancreatitis. We will continue to follow. She is improving. I think we could probably get her home soon possibly tomorrow. She is tolerating regular diet. 2. Alcoholic hepatitis. That is overall improving as well. Explained at length that she will have to be sober for at least 6 weeks possibly indefinitely, especially if there is obviously addiction issues involved. 3. Right middle lobe pneumonia. She is on Merrem and vancomycin, need to repeat her chest x-ray. She has been getting up and around so I think if her x-ray looks better tomorrow anticipate we could discharge her in the morning. DISPOSITION: Pending her clinical status. cc: Florencio Chavez MD
[2019-02-16] MEDS: DUONEB (A & A) INH SCH ×2 (03:00→09:27)
[2019-02-16] MEDS: MERREM 1 GM in NS 50 ML IV SCH (04:45)
[2019-02-16] MEDS: MORPHINE IV PRN ×3 (05:08→13:07)
--- NOTE | 2019-02-16 06:36 | Diag Imaging Result Doc PS360 ---
EXAM: CHEST-PORTABLE HISTORY: dyspnea TECHNIQUE: Portable chest single view COMPARISON: 02/12/2019 FINDINGS: Poor inspiratory effort. No cardiomegaly. No change in the right-sided PICC line. There is basilar atelectasis versus infiltrates. These are slightly less prominent than the right base. Likely tiny effusions. IMPRESSION: Mild interval improvement. Electronically signed by Héctor Thakur 02/16/2019 6:33 AM
[2019-02-16 06:41] LABS: AGAP 9; ALB/GLOB RATIO 1.1; ALBUMIN 3.3 g/dL (3.5-5.0); ALKALINE PHOSPHATASE 124 U/L (32-104); BUN 4 mg/dL (8-22); CALCIUM 8.7 mg/dL (8.8-10.2); CHLORIDE 100 mmol/L (98-107); COSMO 271; CREATININE 0.4 mg/dL (0.5-0.9); ESTIMATED GFR > 60; GLUCOSE 109 mg/dL (70-104); GOT 37 U/L (10-30); GPT 30 U/L (10-36); SODIUM 137 mmol/L (136-145); TCO2 28 mmol/L (25-35); TOTAL BILIRUBIN 0.24 mg/dL (0.20-1.00); TOTAL PROTEIN 6.2 g/dL (6.3-8.3)
[2019-02-16 06:46] LABS: BASO# 0.04 X1000 (0.0-0.2); BASO% 0.8 % (0.0-0.8); EOS# 0.11 X1000 (0.0-0.7); EOS% 2.1 % (0.0-10.0); HEMATOCRIT 33.1 % (37.0-47.0); HEMOGLOBIN 10.6 g/dL (12.0-16.0); IMM GRAN# 0.02 X1000 (0.0-0.04); IMM GRAN% 0.4 % (0.0-0.5); LYMPH# 1.45 X1000 (1.2-3.4); LYMPH% 27.4 % (20.5-51.1); MCH 31.5 PG (27-31); MCV 98.2 FL (81-99); MONO# 1.26 X1000 (0.11-0.59); MONO% 23.8 % (1.7-9.3); MPV 10.1 FL (7.4-10.4); NEUT# 2.41 X1000 (1.4-6.5); NEUT% 45.5 % (42.2-75.2); PLT 416 X1000 (130-400); RBC 3.37 XMIL (4.2-5.4); RDW 15.1 % (11.5-14.5); WBC 5.29 X1000 (4.8-10.8)
[2019-02-16 07:03] LABS: EOS 2 % (1-10); LYMPHS 31 % (21-51); MONO 18 % (1-9); SEGS 49 % (42-75)
[2019-02-16] MEDS: ATIVAN IV PRN (07:54)
[2019-02-16] MEDS: LACTULOSE PO SCH (09:46)
[2019-02-16] MEDS: NEUTRA-PHOS PO SCH (09:46)
[2019-02-16] MEDS: PROTONIX PO SCH (09:46)
[2019-02-16] MEDS: NEURONTIN PO SCH (09:46)
[2019-02-16] MEDS: BUSPAR PO SCH (09:46)
[2019-02-16] MEDS: COLACE PO SCH (09:46)
--- NOTE | 2019-02-16 12:11 | Diag Imaging Result Doc PS360 ---
EXAM: ABDOMEN FLAT/UPRIGHT HISTORY: pain TECHNIQUE: Flat and upright, two views COMPARISON: None. FINDINGS: No free air beneath the diaphragm. No organomegaly. There is air throughout the colon. Jewelry in the umbilicus. No abnormal calcifications in the abdomen. The several pelvic phleboliths. IMPRESSION: No definite abnormality Electronically signed by Héctor Thakur 02/16/2019 12:08 PM
[2019-02-16 12:24] VITALS: BP 115/84
[2019-02-16] MEDS ORDERED: MERREM ONE (12:46)
[2019-02-16] MEDS ORDERED: NEOSPORIN OINTMENT PACKET TOP ONE (13:38)
--- NOTE | 2019-02-16 18:37 | DISCHARGE SUMMARY ---
ADMISSION DATE: 02/09/2019 DISCHARGE DATE: 02/16/2019 DISCHARGE DIAGNOSES: 1. Eomkw-wt-[id number] pancreatitis. 2. Alcoholic hepatitis. 3. Alcohol abuse with withdrawal syndrome. 4. Right middle and right lower lobe pneumonia. CONSULTATIONS: None. PROCEDURES: None. HOSPITAL COURSE: This is a 38-year-old female who has persistent alcohol use, which includes she drinks alcohol daily. I am not quite sure how much she drinks. She was placed on IV fluids. She also had pneumonia so she was treated with that. She had a high anion gap metabolic acidosis. Her alcohol level on admission was 126. She was slowly progressed. Her lipase level was impressively elevated. She was initially in the ICU. Her lipase was 1422. Her CT scan showed pancreatitis, right middle and lower lobe pneumonia, severe steatohepatitis. She has improved. Her diet was advanced. Her lipase continued to trend downward. She was very unmotivated to get out of bed and start moving around. We had a long discussion about alcohol abstinence multiple times, that she had both steatohepatitis and pancreatitis, and this was at least her third episode and would likely cause issues. Her repeat chest x-ray on 02/16/2019 showed some improvement. She was breathing comfortably on room air. The plain films were negative. She was still complaining of some cramping abdominal pain in the lower quadrants, but all her testing was better. Her lipase was down to 254. Her AST and ALT were 37 and 30. She was felt stable for discharge. DISCHARGE MEDICATIONS: BuSpar 15 b.i.d.; OxyIR 5 q.3 p.r.n. pain, #25; Augmentin 870 q.12 x7 days; trazodone 100 b.i.d.; K-Phos 250 b.i.d.; Librium 25 t.i.d. p.r.n. anxiety, #30; Neurontin 100 b.i.d.; Prilosec 40 b.i.d. DISCHARGE CONDITION: Stable. DISCHARGE INSTRUCTIONS: Follow up with her PCP. She was told to avoid all alcohol. A 32-minute discharge. cc: Florencio Chavez MD
== END 2019-02-16 14:37 | disposition home or self-care (01) | DRG 438 ==
LOC: SUPCPDRO → ED 06:14 → SUATTDRO 09:24 → 4N 09:24 → ICU 12:59 → 4N 02-12 14:36
PROVIDERS: ATTEND Internal Medicine

== ENCOUNTER 2019-04-01 06:23 | Inpatient (IN) ==
[2019-04-01 07:33] LABS: URINE SOURCE CLEAN CATCH
[2019-04-01 07:34] LABS: BASO# 0.03 X1000 (0.0-0.2); BASO% 1.1 % (0.0-0.8); EOS# 0.02 X1000 (0.0-0.7); EOS% 0.8 % (0.0-10.0); HEMATOCRIT 36.6 % (37.0-47.0); HEMOGLOBIN 12.7 g/dL (12.0-16.0); LYMPH# 0.73 X1000 (1.2-3.4); LYMPH% 27.8 % (20.5-51.1); MCH 32.7 PG (27-31); MCHC 34.7 g/dL (33-37); MCV 94.3 FL (81-99); MONO# 0.25 X1000 (0.11-0.59); MONO% 9.5 % (1.7-9.3); MPV 10.8 FL (7.4-10.4); NEUT% 60.8 % (42.2-75.2); PLT 91 X1000 (130-400); RBC 3.88 XMIL (4.2-5.4); RDW 14.8 % (11.5-14.5); WBC 2.63 X1000 (4.8-10.8)
[2019-04-01 07:39] LABS: AGAP 17; ALB/GLOB RATIO 1.2; ALBUMIN 3.8 g/dL (3.5-5.0); ALKALINE PHOSPHATASE 179 U/L (32-104); AMYLASE 90 U/L (20-200); BUN 2 mg/dL (8-22); CALCIUM 7.9 mg/dL (8.8-10.2); CHLORIDE 95 mmol/L (98-107); COSMO 270; CREATININE 0.5 mg/dL (0.5-0.9); ESTIMATED GFR > 60; GLUCOSE 132 mg/dL (70-104); GOT 256 U/L (10-30); GPT 133 U/L (10-36); LIPASE 151 U/L (13-60); POTASSIUM 3.6 mmol/L (3.5-5.1); SODIUM 136 mmol/L (136-145); TCO2 24 mmol/L (25-35); TOTAL BILIRUBIN 0.75 mg/dL (0.20-1.00); TOTAL PROTEIN 7.1 g/dL (6.3-8.3)
[2019-04-01 07:48] LABS: UR AMPHETAMINES QUAL NONE DETECTED (NONE DETECT); UR BARBITUATES QUAL NONE DETECTED (NONE DETECT); UR BENZODIAZEPIN QUAL PRESUMPTIVE POSITIVE (NONE DETECT); UR CANNABINOIDS QUAL NONE DETECTED (NONE DETECT); UR COCAINE QUAL NONE DETECTED (NONE DETECT); UR METHADONE QUAL NONE DETECTED (NONE DETECT); UR OPIATES QUAL NONE DETECTED (NONE DETECT); UR OXYCODONE QUAL NONE DETECTED (NONE DETECT); UR PCP QUAL NONE DETECTED (NONE DETECT)
[2019-04-01 07:49] LABS: UR EPITHELIAL CELLS <10 /HPF (<10); URINE BACTERIA 4+ /HPF; URINE WBC TNTC /HPF (<10)
--- NOTE | 2019-04-01 07:54 | Diag Imaging Result Doc PS360 ---
EXAM: CHEST-2 VIEWS HISTORY: recent PNA, chills, cough TECHNIQUE: Chest two views COMPARISON: 02/16/2019 FINDINGS: The lungs are well expanded. The heart is not enlarged. The vessels are not distended. There are no infiltrates. No pleural effusions. Left-sided jewelry. IMPRESSION: No pneumonia. Electronically signed by Héctor Thakur 04/01/2019 7:51 AM
--- NOTE | 2019-04-01 08:02 | Diag Imaging Result Doc PS360 ---
EXAM: KNEE 3 VIEWS LEFT HISTORY: fall TECHNIQUE: Left knee, three views COMPARISON: None. FINDINGS: No fracture. No dislocation. IMPRESSION: No acute bony injury. Electronically signed by Héctor Thakur 04/01/2019 8:00 AM
--- NOTE | 2019-04-01 08:04 | Diag Imaging Result Doc PS360 ---
EXAM: RIBS ONLY LEFT HISTORY: fall TECHNIQUE: Left rib detail, three views COMPARISON: None. FINDINGS: No contusion. No pneumothorax. No displaced fracture or pleural effusion. IMPRESSION: No injury Electronically signed by Héctor Thakur 04/01/2019 8:01 AM
[2019-04-01 08:12] LABS: BILIRUBIN URINE SMALL (NEGATIVE); BLOOD URINE TRACE (NEGATIVE); COLOR ORANGE; GLUCOSE URINE NEGATIVE (NEGATIVE); KETONE URINE TRACE mg/dL (NEGATIVE); LEUKOCYTES URINE MODERATE (NEGATIVE); NITRITE URINE POSITIVE (NEGATIVE); PROTEIN URINE TRACE mg/dL (NEGATIVE); SP GRAVITY URINE 1.018; TURBIDITY URINE HAZY (CLEAR); UROBILINOGEN URINE NORMAL (NORMAL)
[2019-04-01] MEDS ORDERED: TORADOL IV ONE (09:08)
[2019-04-01] MEDS ORDERED: ZOFRAN IV ONE (09:08)
[2019-04-01] MEDS ORDERED: ROCEPHIN 1 GM in NS 50 ML IV ONE (09:08)
[2019-04-01] MEDS ORDERED: M.V.I.-12 10 ML, FOLIC ACID 1 MG, MAGNESIUM SULFATE 1 GM, THIAMINE 100 MG in NS 1,000 ML IV SCH (10:00)
[2019-04-01] MEDS ORDERED: ROCEPHIN 1 GM in NS 50 ML IV SCH (10:15)
[2019-04-01] MEDS ORDERED: TORADOL IV PRN (10:25)
--- NOTE | 2019-04-01 10:49 | SEPSIS: TISSUE PERFUSION ASSMT ---
Sepsis: Tissue Perfusion Assmt - Physical Exam Vital Signs: Last Vital Signs Temp 98.1 F 04/01/19 06:26 Pulse 91 H 04/01/19 06:26 Resp 20 04/01/19 06:26 BP 144/107 04/01/19 06:26 Pulse Ox 100 04/01/19 06:26 Height 5 ft 5 in Weight 63.503 kg
[2019-04-01] MEDS: ATARAX PO SCH ×3 (11:07→21:40)
--- NOTE | 2019-04-01 11:59 | HISTORY AND PHYSICAL ---
CHIEF COMPLAINT: "I am going through alcohol withdrawal and I need to quit drinking". HISTORY OF PRESENT ILLNESS: This is a 38-year-old female with a history of alcohol abuse, alcohol induced hepatitis and chronic pancreatitis. She presents to the emergency room complaining of a long history of alcohol use. She presented to the emergency room first stating that she thought she still had pneumonia being hospitalized 6 weeks ago. She said that she had a productive cough with green sputum. She then stated that a friend fell on top of her. She was having left rib, left knee pain. She then stated that she had been drinking more than usual. Her last drink was last night. She usually drinks 1 to 2 pints a day and that today she wants help to stop drinking. She then stated that she had suprapubic low abdominal pain. She denied any syncope or dizziness, any chest pain, palpitations, any nausea, vomiting, diarrhea, constipation, any dysuria, hematuria, frequency, urgency. PAST MEDICAL HISTORY: 1. Alcohol abuse. 2. History of chronic pancreatitis, alcohol induced. 3. Alcohol induced hepatitis in the background of severe hepatic steatosis. 4. Gastroesophageal reflux disease. PAST SURGICAL HISTORY: Right knee arthroscopy. FAMILY HISTORY: Denies any cardiac or renal issues. There is a remote history of alcohol abuse. ALLERGIES: No known drug allergies. HOME MEDICATIONS: BuSpar 15 mg p.o. p.r.n. she states she takes maybe 1 to 2 weeks. REVIEW OF SYSTEMS: Discussed with the patient with pertinent positives stated in the HPI. She denied any syncope, dizziness, any chest pain, palpitations, shortness of breath, any PND, orthopnea, any nausea, vomiting, diarrhea, constipation, black or bloody vomitus or stools, any hematuria, frequency or urgency. PHYSICAL EXAMINATION: GENERAL: This is a 38-year-old female who is sitting up in the bed in the emergency room in no distress. VITAL SIGNS: Blood pressure is 136/82 with a heart rate of 84, respirations are 20, temperature is 98.1 degrees oral with room air saturations 100%. EYES: Pupils are equal, round, react to light. EOMs are intact. Sclerae are anicteric. HEENT: Head is normocephalic, atraumatic. Mucous membranes are moist. NECK: Supple with trachea midline. No JVD. CARDIOVASCULAR: Regular rate and rhythm. S1 and S2 appreciated. She has no lower extremity edema. Calves are nontender bilateral, peripheral pulses palpable x4 extremities. PULMONARY: Breath sounds are clear. No increased work of breathing noted. Chest rises and falls with symmetric respiration. GASTROINTESTINAL: Abdomen is soft with suprapubic tenderness nondistended with bowel sounds in all 4 quadrants. NEUROLOGIC: She is alert oriented x3. SKIN: Warm and dry. LABORATORY DATA: 1. WBC is 2.6 with hemoglobin 12.7, hematocrit 36.6, platelets of 91,000. Sodium 136, potassium 3.6, BUN 2, creatinine 0.5 with a glucose of 132, AST 256, ALT 133, alkaline phosphatase 179. Amylase is 90 with lipase of 151. Urinalysis is positive for nitrites with small bilirubin, too numerous to count white blood cells, less than 10 epithelial cells and 4+ bacteria. Urine drug screen is presumptive positive for benzodiazepines with blood alcohol of 16. 2. Chest x-ray revealed no pneumonia. Lungs are well expanded. Heart is not enlarged. Vessels are not distended. There are no infiltrates, no pleural effusion. 3. Left knee x-ray reveals no acute bony injury, no fracture, no dislocation. 4. Ribs revealed no injury, no contusion no pneumothorax. No displaced fracture or pleural effusion. Next throat culture is pending. Group A strep is negative with flu swab A and B negative. ASSESSMENT AND PLAN: 1. Acute alcohol abuse and mild withdrawal. We will give a banana bag bolus. Continue with IV hydration. We will monitor for any signs of withdrawal, i.e., hallucinations, severe tremor, any tachycardia, give Atarax 50 mg p.o. q.6 hours scheduled x6 doses, having Ativan 1 mg IV q.4 hours p.r.n. severe tremulousness, hallucinations or tachycardia. 2. Chronic pancreatitis. Lipase is 151, which is lower than any levels since 11/02/2018. She has highs about 1400. We will repeat a lipase in the morning. As of now she denies any nausea, vomiting, any abdominal pain. 3. Urinary tract infection. She was given Rocephin in the emergency room. We will continue this daily and any further antibiotics will be culture driven. 4. Thrombocytopenia. This appears to be chronic. We will hold off on any anticoagulation. We will monitor her labs. 5. Severe hepatic steatosis. 6. Alcohol induced hepatitis in the background of severe hepatic steatosis. We are aware; we will continue with IV hydration and trend her labs daily. 7. Gastroesophageal reflux disease. We will use PPI. 8. History of torsade secondary to electrolyte imbalance. We will monitor electrolytes daily, replete as appropriate. 9. High anion gap acidosis. This is very likely secondary to alcoholic ketoacidosis as well as starvation ketoacidosis as she states she has been drinking more and with little food intake. We will monitor her labs daily. Continue with IV hydration and advance diet as tolerated. 10. For DVT prophylaxis will use SCDs and GI prophylaxis PPI. 11. Plan was discussed with Dr. Westbrook. Further treatments pending hospital course. Dictated by DIANA Byrne for Dino Westbrook MD cc: DIANA Byrne agree with the above. the following is my own face to face assessment. Patient states that she has quit drinking. does have mild tremulousness on exam so likely mild withdrawal. mildly elevated lipase but nothing clinically to suggest pancreatitis, so likely incidental finding. no abdominal tenderness on exam. will stabilize withdrawal and hopefully discharge in the next 24-48 hours. patient currently denying benzo use. UDS positive for benzos. last script appears to be 6-7 weeks ago from the hospital. no recurring benzo scripts noted. MTDD
[2019-04-01] MEDS: NS 1,000 ML IV SCH (13:53)
[2019-04-01] MEDS: ATIVAN IV PRN ×2 (13:53→18:56)
[2019-04-01] MEDS: TORADOL IV PRN ×2 (15:16→21:40)
[2019-04-01] MEDS: ZOFRAN IV PRN ×2 (15:16→21:40)
[2019-04-02] MEDS: ATIVAN IV PRN ×3 (00:18→08:20)
[2019-04-02] MEDS: ATARAX PO SCH ×3 (04:00→17:06)
[2019-04-02] MEDS: ZOFRAN IV PRN ×2 (04:18→08:20)
[2019-04-02] MEDS: TORADOL IV PRN ×4 (04:18→23:51)
[2019-04-02] MEDS: PRILOSEC PO SCH (06:52)
[2019-04-02] MEDS: ROCEPHIN 1 GM in NS 50 ML IV SCH (08:16)
[2019-04-02 08:36] LABS: HEMATOCRIT 34.6 % (37.0-47.0); HEMOGLOBIN 11.6 g/dL (12.0-16.0); MCH 32.7 PG (27-31); MCHC 33.5 g/dL (33-37); MCV 97.5 FL (81-99); MPV 11.3 FL (7.4-10.4); RBC 3.55 XMIL (4.2-5.4); RDW 14.9 % (11.5-14.5); WBC 1.79 X1000 (4.8-10.8)
[2019-04-02 09:33] LABS: AGAP 15; ALB/GLOB RATIO 1.3; ALBUMIN 3.5 g/dL (3.5-5.0); ALKALINE PHOSPHATASE 153 U/L (32-104); BUN 2 mg/dL (8-22); CALCIUM 7.5 mg/dL (8.8-10.2); CHLORIDE 102 mmol/L (98-107); COSMO 272; CREATININE 0.4 mg/dL (0.5-0.9); ESTIMATED GFR > 60; GLUCOSE 101 mg/dL (70-104); GOT 157 U/L (10-30); GPT 109 U/L (10-36); LIPASE 111 U/L (13-60); POTASSIUM 3.7 mmol/L (3.5-5.1); SODIUM 138 mmol/L (136-145); TCO2 21 mmol/L (25-35); TOTAL BILIRUBIN 0.56 mg/dL (0.20-1.00); TOTAL PROTEIN 6.3 g/dL (6.3-8.3)
[2019-04-02] MEDS ORDERED: MAGNESIUM SULFATE 2 GM/S.W.I. 2 GM/50 ML IVPB IV ONE (10:28)
--- NOTE | 2019-04-02 11:04 | PROGRESS NOTE ---
DATE: 04/02/2019 SUBJECTIVE: This patient is feeling better. She is complaining of mild abdominal pain, but compared with yesterday she is much better. She is having tremors at the level of the upper extremities. Her magnesium level was low at 0.8, today is 1.4. I will replace it. I will stop the banana bag, and I will put her on multivitamins through her mouth. She has not been able to sleep, so we will start her on trazodone during the night, and also for her anxiety I will start her on gabapentin. OBJECTIVE: Vital Signs: Temperature 98 degrees, pulse 77, respiratory rate 16, blood pressure 132/98, and oxygen saturation 98 on room air. HEENT: Head normocephalic. No trauma. PERRLA. Neck: Supple. No JVD. No masses. Central trachea. Chest: Clear to auscultation. No wheezing. No rales. Cardiovascular: RRR. Abdomen: Soft. Some tenderness to palpation at the level of the suprapubic area and periumbilical area. Neurological: This patient is alert. She is oriented x3. No focal deficits. LABORATORY: WBC 1.7, hemoglobin 11.6, hematocrit 34.6, and platelets 100,000. Sodium 138, potassium 3.7, chloride 102, bicarbonate 21, BUN 2, creatinine 0.4, glucose 101, calcium 7.5, magnesium 1.4, AST 157, ALT 109, alkaline phosphatase 153, and lipase level 111. ASSESSMENT AND PLAN: 1. Alcohol abuse with mild withdrawal symptoms, I will continue this patient on IV fluids. I will start her on Librium. I will continue with Ativan as well, multivitamins by mouth. She seems to be a little bit better. 2. Chronic pancreatitis. Continue with same management. 3. Urinary tract infection with a positive urine culture that showed gram-negative rods. I will wait for the final sensitivity. Continue with ceftriaxone in the meantime. 4. Leukopenia with thrombocytopenia, mild anemia, probably this is multifactorial but could be related to some bone marrow suppression due to alcoholic hepatitis. We will monitor for now. 5. Hypomagnesemia. I will replace it. 6. Elevated liver function tests, likely due to alcoholic hepatitis. 7. Gastroesophageal reflux disease. Continue with proton pump inhibitors. 8. Deep vein thrombosis prophylaxis with SCD's. cc: Edmond oGnzalez MD
[2019-04-02] MEDS: NEURONTIN PO SCH (11:13)
[2019-04-02] MEDS: NS 1,000 ML IV SCH ×2 (15:16→15:51)
[2019-04-02] MEDS: LIBRIUM PO SCH ×2 (15:16→22:23)
[2019-04-02] MEDS ORDERED: PNEUMOVAX 23 IM ONE (17:39)
[2019-04-02] MEDS ORDERED: FLU VACCINE IM ONE (17:39)
[2019-04-02] MEDS ORDERED: DESYREL PO SCH (21:00)
[2019-04-03] MEDS: NS 1,000 ML IV SCH ×3 (02:47→09:47)
[2019-04-03] MEDS: PRILOSEC PO SCH (06:16)
[2019-04-03] MEDS: TORADOL IV PRN (06:16)
[2019-04-03 07:11] LABS: BASO# 0.02 X1000 (0.0-0.2); BASO% 0.8 % (0.0-0.8); EOS% 4.1 % (0.0-10.0); HEMATOCRIT 32.8 % (37.0-47.0); HEMOGLOBIN 10.7 g/dL (12.0-16.0); LYMPH# 1.03 X1000 (1.2-3.4); MCHC 32.6 g/dL (33-37); MCV 98.2 FL (81-99); MONO# 0.29 X1000 (0.11-0.59); MONO% 11.8 % (1.7-9.3); NEUT# 1.01 X1000 (1.4-6.5); NEUT% 41.3 % (42.2-75.2); PLT 140 X1000 (130-400); RBC 3.34 XMIL (4.2-5.4); RDW 15.1 % (11.5-14.5); WBC 2.45 X1000 (4.8-10.8)
[2019-04-03 07:21] VITALS: BP 115/83
[2019-04-03 07:40] LABS: AGAP 14; ALB/GLOB RATIO 1.1; ALBUMIN 3.1 g/dL (3.5-5.0); ALKALINE PHOSPHATASE 129 U/L (32-104); BUN 3 mg/dL (8-22); CALCIUM 7.7 mg/dL (8.8-10.2); CHLORIDE 104 mmol/L (98-107); COSMO 274; CREATININE 0.4 mg/dL (0.5-0.9); ESTIMATED GFR > 60; GLUCOSE 102 mg/dL (70-104); GOT 90 U/L (10-30); GPT 78 U/L (10-36); MAGNESIUM 1.6 mg/dL (1.5-2.7); POTASSIUM 3.5 mmol/L (3.5-5.1); SODIUM 139 mmol/L (136-145); TCO2 21 mmol/L (25-35); TOTAL BILIRUBIN 0.41 mg/dL (0.20-1.00); TOTAL PROTEIN 5.9 g/dL (6.3-8.3)
[2019-04-03] MEDS ORDERED: CENTRUM SILVER PO SCH (09:00)
[2019-04-03] MEDS ORDERED: VITAMIN B-1 PO SCH (09:00)
[2019-04-03] MEDS ORDERED: FOLIC ACID PO SCH (09:00)
[2019-04-03] MEDS: NEURONTIN PO SCH (09:37)
[2019-04-03] MEDS: LIBRIUM PO SCH (09:37)
[2019-04-03] MEDS: ROCEPHIN 1 GM in NS 50 ML IV SCH (09:37)
--- NOTE | 2019-04-04 15:08 | DISCHARGE SUMMARY ---
ADMISSION DATE: 04/01/2019 DISCHARGE DATE: 04/03/2019 DISCHARGE DIAGNOSES: 1. Alcohol abuse with mild withdrawal symptoms. 2. Chronic pancreatitis. 3. Asymptomatic bacteriuria. 4. Leukopenia with thrombocytopenia, mild anemia. 5. Hypomagnesemia. 6. Elevated liver function tests likely due to alcoholic hepatitis. 7. Gastroesophageal reflux disease. PROCEDURES PERFORMED: Chest x-ray dated 04/01/2019. Impression: No pneumonia. Knee x-ray dated 04/01/2019. Impression: No acute bony abnormality. Ribs x-ray dated 04/01/2019. Impression: No injury. HOSPITAL COURSE: A 38-year-old female with a past medical history of alcohol abuse, alcohol-induced hepatitis and chronic pancreatitis, presented to the emergency department stating that a friend fell on top of her and she was having left rib, left knee pain. Also, she states that she has been drinking more than usual and her last drink was apparently that day. She was admitted on 04/01/2019. She usually drinks 1 to 2 pints a day. She was concerned about a prior pneumonia that she had and she was hospitalized for 6 weeks ago. Also, she was complaining of some low abdominal pain, but she denied dysuria, any change in the urine, odor or any discharge or pain, or pain during urination. She denied any syncope or dizziness, any chest pain, palpitation, nausea, vomiting, diarrhea, hematuria, frequency or urgency, she was noted to have some tremors mostly at the level of the upper extremities. So we decided to keep this patient in the medical floor, give her IV fluids, and I started this patient on a banana bag and also Ativan as needed. Since she was still having some tremors, I also put this patient on a low dose of Librium. She was having insomnia and she was using trazodone before, so I placed this patient back on that. Also, she has been using buspirone for anxiety with alcohol abuse, but as per the patient, it did not work so I changed to Neurontin. She was feeling much better today, so I will discharge her with a low dose of Librium which I will taper down slowly for 8 more days or so. Also, will continue with trazodone, thiamine and multivitamin, gabapentin. She needs to follow up with her primary care doctor. As per the patient, she will stop the drinking completely. PHYSICAL EXAMINATION: Vital signs: Temperature 97.3 degrees, pulse 59, respiratory rate 18, blood pressure 115/83, oxygen saturation 99 on room air. HEENT: Head normocephalic, no trauma. PERRLA. Neck: Is supple. No JVD. No masses. Central trachea. Chest: Clear to auscultation. No wheezing. No rales. Abdomen: Soft. Some tenderness to palpation at the level of the lower abdomen. No dysuria though. Neurological examination: Patient is alert. She is oriented. No focal deficits. Just mild hand tremors. LABORATORY: WBC 2.4, hemoglobin 10.7, hematocrit 32.8, platelets 440,000. Sodium 139, potassium 3.5, chloride 104, bicarbonate 21, BUN 3, creatinine 0.4, glucose 102, calcium 7.7, magnesium 1.6. AST 90, ALT 78, alkaline phosphatase 129, albumin 3.1. DISCHARGE MEDICATIONS: 1. Librium 10 mg p.o. 3 times a day for 2 days, then twice a day for 3 days and then once a day for 3 more days and then stop. 2. Folic acid 1 mg p.o. daily. 3. Gabapentin 300 mg p.o. b.i.d. 4. Centrum Silver 1 tablet p.o. daily. 5. Omeprazole 40 mg p.o. daily. 6. Thiamine 100 mg p.o. daily. 7. Trazodone 25 mg p.o. at bedtime as needed for insomnia. TIME SPENT: Time discharging this patient and talking to her about alcohol abuse and chronic pancreatitis around 35 minutes. She will need to follow up with a primary care doctor. I explained to her that her LFTs and numbers are much better today. cc: Edmond Gonzalez MD
== END 2019-04-03 10:59 | disposition home or self-care (01) | DRG 897 ==
LOC: ED 06:23 → 4N 06:23 → SUATTDRO 10:21 → OBSVTOIN 10:21
PROVIDERS: ATTEND Internal Medicine